=== PATIENT | female | born 1955 | race Caucasian/White ===

== ENCOUNTER 2016-12-23 20:47 | Emergency (ER) | payer OTHER | END 2016-12-23 22:01 | disposition home or self-care (01) | LOC: D.ER 20:47 | DX: G47.00 Insomnia, unspecified (principal); J44.9 Chronic obstructive pulmonary disease, unspecified; I10 Essential (primary) hypertension; E11.9 Type 2 diabetes mellitus without complications; F41.9 Anxiety disorder, unspecified; F17.200 Nicotine dependence, unspecified, uncomplicated ==

== ENCOUNTER 2017-11-13 08:11 | Outpatient (CLI) | payer OTHER ==
[~2017-11-13] VITALS: Ht 165.1 cm; Wt 105.2 kg
--- NOTE | ~2017-11-13 | OP ---
PATIENT NAME: VEENA WILKINS MEDICAL RECORD: [id number] :51 LOCATION:D.M2 D.2118 ADMISSION DATE: SURGEON: RODNEY COLBERT MD DATE OF OPERATION: 11/14/2017 PROCEDURES: 1. PTCA stent LAD. 2. Selective coronary angiography. INDICATION: Angina and coronary artery disease. PROCEDURE IN DETAIL: After informed consent was obtained and after a detailed description of risks, benefits as well as alternative therapies, the patient elected to proceed with angiogram and angioplasty. The right radial area was prepped and draped in normal sterile fashion. Right radial artery was cannulated via modified Seldinger technique with placement of 6-Vietnamese sheath. All catheters exchanged through this sheath. FINDINGS: The left anterior descending has 80% stenosis proximally. This was addressed with a 3.0 x 22 mm [place]. Result was 0% residual stenosis. OVERALL IMPRESSION: Successful percutaneous transluminal coronary angioplasty stent of the left anterior descending going from 80% initial stenosis to 0% residual. TRANSINT:[id number] Voice Confirmation ID: [id number] DOCUMENT ID: [id number] RODNEY COLBERT MD at 1614 CC: [id number] DICTATION DATE: 11/14/17 1243 LEARNING AND DEVELOPMENT MANAGER: 11/14/17 1251 REG [facility] [address] [place] [address]
--- NOTE | ~2017-11-13 | HEMODYNAMI ---
PATIENT:VEENA WILKINS MEDICAL RECORD: [id number] : 51 [facility] D[id number] ADMISSION DATE: 11/13/17 Generatedon:11/14/201712:52 Patient name: VEENA WILKINS Patient #: [id number] SSN: : 1955 Date of study: 11/14/2017 Page: Of Hemodynamic Procedure Report Patient Data Patient Demographics Procedure consent was obtained First Name: VEENA Gender: Female Last Name: CLAUDETTE : 1955 [facility] Initial: J Age: 62 year(s) Patient #: [id number] Race: Unknown Additional ID: [id number] Contact details [address]: [address] [place] [address] State: [place] City: [place] Zip code: [address] Past Medical History Allergies Allergen Reaction Date Comments Reported Other allergy 11/13/2017 IV DYE, COEINE, PCN Admission Admission Data Admission Date: 11/13/2017 Admission Time: 8:11 Room #: D.2118 Height (in.): 65 BSA: 1.98 (m2) Height (cm.): 165.1 BMI: 33.38 (kg/m2) Weight (lbs.): 200.62 Weight (kg.): 91 Lab Results Lab Result Date: 11/14/2017 Lab Result Time: 0:00 Biochemistry Name Units Result Min Max BUN mg/dl 7 --(*---)-- 7 18 Creatinine mg/dl 1.1 --(--*-)-- 0.6 1.3 CBC Name Units Result Min Max Hemoglobin g/dl 13.2 -*(----)-- 13.5 17.5 Coagulation Name Units Result Min Max INR units 1.09 --(---*)-- 0.85 1.17 PT sec 13.7 --(--*-)-- 11.6 15 Procedure Procedure Types Cath Procedure PCI Procedure Coronary Stent Coronary Stent Initial Procedure Description Procedure Date Procedure Date: 11/14/2017 Procedure Start Time: 12:35 Procedure End Time: 12:50 Procedure Staff Name Function Gerry Montes MD Performing Physician Andrew Neumann RT Monitor Abraham Basurto RN Nurse Memo Velasquez RT Scrub Procedure Data Cath Procedure Fluoroscopy Diagnostic fluoroscopy Total fluoroscopy Time: 1.3 time: 1.3 min min Diagnostic fluoroscopy Total fluoroscopy dose: dose: 119.02 mGy 119.02 mGy Contrast Material Contrast Material Type Amount (ml) Isovue 300 38 Entry Location Entry Primary Successful Side Size Upsize Upsize Entry Closure Jurado ccessful Closure Location (Fr) 1 (Fr) 2 (Fr) Remarks Device Remarks Radial Right 6 Fr Mechanical artery Short Compression Estimated blood loss: 10 ml Procedure Medications Medication Administration Route Dosage 0.9% NaCl I.V. 100 ml/hr Oxygen etCO2 Nasal cannula 2 l/min Heparin Flush Bag added to field 2 bags (1000units/500ml NS) Lidocaine 2% added to field 20 Radial Cocktail added to field 1 syringe (Verapomil 2mg/Nitro 400mcg/Heparin 1500units) Radial Cocktail I.A. 1 syringe (Verapomil 2mg/Nitro 400mcg/Heparin 1500units) Versed I.V. 2 mg Fentanyl I.V. 100 mcg Heparin Bolus I.V. 4000 units Plavix P.O. 75 mg Hemodynamics Rest BSA: 1.98 (m2) HGB: 13.2 (g/dl) O2 Consumption: Estimated: 193.38 (ml/min) O2 Co nsumption indexed: Estimated:97.67 (ml/min/m) Heart Rate: 81 (bpm) Snapshots Pre Cath Intra NCS Post Cath Vital Signs Time Heart Resp SPO2 etCO2 NIBP (mmHg) Rhythm Pain Sedation Rate (ipm) (%) (mmHg) Status Level (bpm) 12:21:53 81 11 93 21.7 172/71(113) NSR 0 (11) 10(A) , No pain 12:26:41 81 24 91 14.9 137/65(100) NSR 0 (11) 10(A) , No pain 12:31:22 82 18 90 12.7 138/67(120) NSR 0 (11) 10(A) , No pain 12:36:03 81 16 92 0 139/69(106) NSR 0 (11) 10(A) , No pain 12:40:35 81 19 92 1.4 106/57(72) NSR 0 (11) 10(A) , No pain 12:45:34 83 11 9.7 Measuring NSR 0 (11) 10(A) , No pain 12:45:59 81 11 93 27.7 128/73(105) NSR 0 (11) 10(A) , No pain Medications Time Medication Route Dose Verified Delivered Reason Not es Effectiveness by by 12:23:14 0.9% NaCl I.V. 100 Alexys Alexys Per physician ml/hr Jeet Marcano RN RN 12:23:24 Oxygen etCO2 2 l/min Alexys Alexys Per physician Nasal Jeet Marcano cannula RN RN 12:23:36 Heparin Flush added 2 bags Alexys Alexys used for Bag to Jeet Marcano procedure (1000units/500ml field RN RN NS) 12:23:46 Lidocaine 2% added 20ml Alexsy Alexys for local to vial Lorigan Jeet anesthetic RN RN 12:23:58 Radial Cocktail added 1 Alexys Alexys used for (Verapomil to syringe Maryigan Jeet procedure 2mg/Nitro RN RN 400mcg/Heparin 1500units) 12:33:42 Versed I.V. 2 mg Alexys Alexys for sedation Jeet Marcano RN RN 12:33:52 Fentanyl I.V. 100 mcg Alexys Alexys for sedation Jeet Marcano RN RN 12:36:54 Radial Cocktail I.A. 1 Alexys Gerry for (Verapomil syringe Jeet Montes MD vasodilation 2mg/Nitro RN 400mcg/Heparin 1500units) 12:39:17 Heparin Bolus I.V. 4000 Alexys Alexys for units Jeet Marcano anticoagulation RN RN 12:44:20 Plavix P.O. 75 mg Alexys Alexys for Lorigan Jeet antiplatelet RN RN therapy Procedure Log Time Note 11:50:58 Andrew WOODS(R) (CV) sent for patient. Start room use. 12:03:59 Time tracking: Regular hours (M-F 7:00 - 5:00) 12:04:11 Plan of Care:Hemodynamics will remain stable., Cardiac rhythm will remain stable., Comfort level will be maintained., Respiratory function will remain adequate., Patient/ family verbilizes understanding of procedure., Procedure tolerated without complication., Recovers from procedure without complications.. 12:05:17 Patient Weight : 200.62 lbs 12::22 Patient Height : 65 inches 12:: Lab Result : PT 13.7 sec 12:: Lab Result : INR 1.09 units 12:: Lab Result : Hemoglobin 13.2 g/dl 12:: Lab Result : BUN 7 mg/dl 12:: Lab Result : Creatinine 1.1 mg/dl 12::49 Patient received from PCU to CCL 3 Alert and oriented. Tansferred to table in Supine position. 12::50 Warm blankets applied, and tracy hugger turned on for patient comfort. 12::50 Correct patient and procedure confirmed by team. 12::51 Signed procedure consent form obtained from patient. 12::52 ECG and BP/O2 sat monitors applied to patient. 12:19:49 Vital chart was started 12:23:14 0.9% NaCl 100 ml/hr I.V. was administered by Alexys Marcano RN; Per physician; 12:23:24 Oxygen 2 l/min etCO2 Nasal cannula was administered by Alexys Marcano RN; Per physician; 12:23:36 Heparin Flush Bag (1000units/500ml NS) 2 bags added to field was administered by Alexys Marcano RN; used for procedure; 12:23:46 Lidocaine 2% 20ml vial added to field was administered by Alexys Marcano RN; for local anesthetic; 12:23:58 Radial Cocktail (Verapomil 2mg/Nitro 400mcg/Heparin 1500units) 1 syringe added to field was administered by Alexys Marcano RN; used for procedure; 12:24:08 Baseline sample Acquired. 12:24:11 Rhythm: sinus rhythm 12:24:13 Full Disclosure recording started 12:24:22 Pre-procedure instructions explained to patient. 12::25 Pre-op teaching completed and patient verbalized understanding. 12:24:27 Family in waiting room. 12:24:35 Patient NPO since Breakfast. 12:25:13 ALLERGIC TO: PCN, CODEINE, CONTRAST 12:25: Is the patient allergic to Iodine/contrast media? Yes. 12:: Was the patient premedicated? Yes 12::27 Is patient on blood thinner?Yes 12:27:04 Patient diabetic? Yes. 12:28:13 If diabetic: On Metformin? No 12::27 ----Pre-sedation anethsthesia assessment.---- 12:28:30 Previous problem with sedation/anesthesia? No ? 12:28:37 Snore? Yes 12:28:39 Sleep apnea? No 12:28:56 Deviated septum? No 12:28:57 Opens mouth fully? Yes 12:29:04 Sticks out tongue? Yes 12:29:10 Airway obstruction? Yes COPD 12:29:17 Dentures? Yes OUT 12:29:25 Patient pain scale 0/10 ?. 12:29:37 IV patent on arrival in left forearm with 0.9% NaCl at [facility]. 12:29:45 Lab results completed and on chart. 12:29:51 Right Radial & Right Groin area was prepped with chlora-prep and draped in sterile fashion 12:29:57 Alarms reviewed by R. N. 12:29:59 Sharps counted by scrub and verified by R.N. 12:30:28 INFLATOR Merit BasixCompak ([id number]) opened to sterile field. 12:30:54 Use device set Radial Dx or PCI 12:31:13 ACIST Syringe (42694) opened to sterile field. 12:31:27 Medline Cath Pack ([id number]) opened to sterile field. 12:31:36 Bag Decanter (2002) opened to sterile field. 12:31:38 DIAGNOSTIC WIRE .035 260cm J wire (720564) opened to sterile field. 12:31:39 ACIST Hand Control (60946) opened to sterile field. 12:31:53 ACIST Manifold (17519) opened to sterile field. 12:31:53 Tegaderm 4 x 4 (1626W) opened to sterile field. 12:31:56 MBrace Wrist Support ([id number]) opened to sterile field. 12:32:07 SHEATH 6Fr Prelude Radial ([id number]) opened to sterile field. 12:32:18 Physician arrived 12:32:18 --------ALL STOP TIME OUT------ 12:32:19 Final Timeout: patient, procedure, and site verified with staff and physician. All members of the team are in agreement. 12:32:21 Right Radial & Right Groin site verified by team. 12:32:25 Physical assessment completed. ASA score P 2 - A patient with mild systemic disease as per Gerry Montes MD. 12:32:30 Sedation plan: IV Moderate Sedation Medication:Versed, Fentanyl 12:32:46 CHOICE PT Extra Support 182cm wire ([id number]) opened to sterile field. 12:32:47 INFLATOR Merit BasixCompak (KF1919) opened to sterile field. 12:33:42 Versed 2 mg I.V. was administered by Alexys Marcano RN; for sedation; 12:33:52 Fentanyl 100 mcg I.V. was administered by Alexys Marcano RN; for sedation; 12:35:25 GUIDE 6FR XBLAD 3.5 catheter ([id number]) opened to sterile field. 12:35:37 Procedure started. 12:35:42 Local anesthetic to right radial artery with Lidocaine 2% by Gerry Montes MD.INITIAL ACCESS ONLY 12:36:00 A 6 Fr Short sheath was inserted into the Right Radial artery 12:36:35 6 Fr XBLAD 3.5 guide catheter was inserted over the wire 12:36:54 Radial Cocktail (Verapomil 2mg/Nitro 400mcg/Heparin 1500units) 1 syringe I.A. was administered by Gerry Montes MD; for vasodilation; 12:38:45 CHOICE wire advanced. 12:38:47 Wire advanced across lesion. 12:39:17 Heparin Bolus 4000 units I.V. was administered by Alexys Marcano RN; for anticoagulation; 12:39:57 Place stent Inflation Number: 1 A CHANTAL RX 3.0 x 22 stent ([id number]) was prepped and advanced across the Prox LAD. The stent was deployed at 17 DANIAL for 0:10 (min:sec). 12:40:11 TR BAND Standard ([id number]) opened to sterile field. 12:41:33 Stent catheter was removed intact over wire. 12:41:34 Wire removed. 12:41:35 Guide catheter removed. 12:41:51 Sheath removed intact; hemostasis achieved with Mechanical Compression to the Right Radial artery. 12:42:26 Procedure ended.(Physican Out) 12:42:37 Fluoroscopy time 01.30 minutes. 12:42:43 Fluoroscopy dose: 119.02 mGy 12:42:43 Flurop Dose total: 119.02 12:43:35 Contrast amount:Isovue 300 38ml. 12:44:20 Plavix 75 mg P.O. was administered by Alexys Marcano RN; for antiplatelet therapy; 12:46:32 TR band inflated with 12cc of air. 12:46:33 Insertion/operative site no bleeding no hematoma. 12:46:41 Post right radial artery:stable 12:48:28 Post-procedure physical assessment completed. ASA score P 2 - A patient with mild systemic disease as per Gerry Montes MD. 12:48:50 Post procedure rhythm: sinus rhythm 12:48:54 Estimated blood loss: 10 ml 12:48:55 Post procedure instruction explained to patient.Patient verbalizes understanding. 12:48:57 Patient needs reinforcement of post procedure teaching. 12:49:00 Procedure and supply charges have been captured, reviewed, submitted and are correct. 12:49:01 Vital chart was stopped 12:49:02 See physician's report for complete and final results. 12:49:04 Report given to PCU. 12:49:07 Report given to PCU. 12:50:02 Patient transfered to PCU with Bed. 12:50:04 Procedure ended. 12:50:04 Full Disclosure recording stopped 12:50:08 End room use (Document Last) Intervention Summary Intervention Notes Time ActionType Lesion and Equipment Used Action# Pressure Duration Attributes 12:39:57 Place stent Prox LAD CHANTAL RX 3.0 x 1 17 00:10 22 stent ([id number]) Device Usage Item Name Manufacture Quantity Catalog Number Hospital Part Current Minimal Lot# / Charge Number Stock Stock Serial# Code INFLATOR Merit Merit 2 [id number] [id number] [id number] 15 [employer] ([id number]) ACIST Syringe Acist 1 34273 991129 981651 314430 20 (96410) Medical Systems Inc Medline Cath Cardinal 1 [id number] 842762 43271 931926 5 Pack Health ([id number]) Bag Decanter Microtek 1 167138 50062 472930 5 () Medical Inc. DIAGNOSTIC WIRE [facility] [place] 1 236942 548858 689892 138050 30 .035 260cm J wire (724141) ACIST Hand Acist 1 84959 466708 929617 010306 5 Control (42767) [employer] Inc ACIST Manifold Acist 1 89650 189725 765579 702219 5 (63930) Medical Systems Inc Tegaderm 4 x 4 3M 1 1626W 631297 091541 007011 5 (1626W) MBrace Wrist Advanced 1 140-0250-00 313574 85243 128399 5 Support Vascular ([id number]) Dynamics SHEATH 6Fr Merit 1 [id number] 857515 587472 456977 5 Prelude Radial Medical ([id number]) CHOICE PT Extra [place] 1 [id number] 323606 290102 440696 5 Support 182cm Scientific wire (2614500T9) GUIDE 6FR XBLAD Cardinal 1 [id number] 116029 416206 763293 10 3.5 catheter Health (28137652) CHANTAL RX 3.0 x Medtronic 1 [id number] 965236 4692776 986162 5 [id number] 22 stent ([id number]) TR BAND Terumo 1 [id number] 492542 256029 596895 40 Standard ([id number]) Signature Audit [place] Stage Time Signature Unsigned Intra-Procedure 11/14/2017 Andrew Neumann 12:52:00 PM RT(R) (CV) Signatures Monitor : Andrew Neumann RT Signature : Date : Time : [facility] [address] [facility] [place] [address]
--- NOTE | ~2017-11-13 | OP ---
PATIENT NAME: VEENA WILKINS MEDICAL RECORD: [id number] :51 LOCATION:D.M2 D.2118 ADMISSION DATE: SURGEON: RODNEY COLBERT MD DATE OF OPERATION: 11/13/2017 PROCEDURES: 1. PTCA stent left circumflex. 2. Left heart catheterization. 3. Selective coronary angiography. 4. Left ventriculogram. 5. Four-vessel carotid vertebral angiography. INDICATION: Angina, coronary artery disease, carotid vascular disease, unsteady gait. PROCEDURE IN DETAIL: After informed consent was obtained and after detailed explanation of risks, benefits as well as alternative therapies, the patient elected to proceed with angiogram and angioplasty. The right femoral area was prepped and draped in normal sterile fashion. The right femoral artery was cannulated via modified Seldinger technique with placement of 6-Azeri sheath. All catheters exchanged through this sheath. FINDINGS: There was subselection of each subclavian as well as the left carotid. Right side; the common internal and external carotids have mild plaquing, no greater than 10% to 20%, no flow-limiting stenosis. Vertebral artery is devoid of disease. Left system; the common internal and external carotids have moderate plaquing, none greater than 30% to 40%, no flow-limiting stenosis. Vertebral artery is devoid of disease. The left ventriculogram was performed in standard 30-degree RODAS view, reveals good cardiac wall motion throughout all segments. Overall ejection fraction estimated at 55% to 60%. SELECTIVE CORONARY ANGIOGRAPHY: 1. Left main is with no significant angiographic disease. 2. Left anterior descending has 80% stenosis in the mid vessel as well as 80% stenosis of the diagonal. 3. Left circumflex has 95% stenosis in the proximal vessel. 4. The right coronary has previously placed stents. There is mild in-stent restenosis, but no flow-limiting stenosis. PTCA STENT OF THE LEFT CIRCUMFLEX: The stent used is a 3.0 x 18 mm [place]. Result was 0% residual stenosis. OVERALL IMPRESSION: Successful PTCA stent of the left circumflex going from 95% initial stenosis to 0% residual. PLAN: PTCA stent of the LAD and LAD diagonal in the near future. TRANSINT:[id number] Voice Confirmation ID: [id number] DOCUMENT ID: [id number] OPERATIVE REPORT [id number] VEENA WILKINS RODNEY COLBERT MD at 1207 CC: [id number] DICTATION DATE: 11/13/17 1443 MICA PLATE LAYER HAND: 11/13/17 1534 [id number] [place] [address]
--- NOTE | ~2017-11-13 | HEMODYNAMI ---
PATIENT:VEENA WILKINS MEDICAL RECORD: [id number] : 51 [facility] AD[facility] DATE: 11/13/17 Generatedon:11/13/201714:50 Patient name: VEENA WILKINS Patient #: [id number] SSN: : 1955 Date of study: 11/13/2017 Page: Of Hemodynamic Procedure Report Patient Data Patient Demographics Procedure consent was obtained First Name: VEENA Gender: Female Last Name: CLAUDETTE : 1955 [facility] Initial: J Age: 62 year(s) Patient #: [id number] Race: Unknown Additional ID: [id number] Contact details [address]: [address] [place] [address] State: [place] City: [place] Zip code: [address] Past Medical History Allergies Allergen Reaction Date Comments Reported Other allergy 11/13/2017 IV DYE, COEINE, PCN Admission Admission Data Admission Date: 11/13/2017 Admission Time: 8:11 Procedure Procedure Types Cath Procedure Diagnostic Procedure [facility] w/Coronaries PCI Procedure Coronary Stent Coronary Stent Initial Peripheral Cath Diagnostic Procedure Cath Peripheral Four Vessel Arteriogram Procedure Description Procedure Date Procedure Date: 11/13/2017 Procedure Start Time: 14:28 Procedure End Time: 14:49 Procedure Staff Name Function Gerry Montes MD Performing Physician Miguel Ángel Prasad RT Monitor Alexys Marcano RN Nurse Hallie Ford RT Scrub Procedure Data Cath Procedure Fluoroscopy Diagnostic fluoroscopy Total fluoroscopy Time: 3 time: 3 min min Diagnostic fluoroscopy Total fluoroscopy dose: dose: 664.33 mGy 664.33 mGy Contrast Material Contrast Material Type Amount (ml) Isovue 300 110 Entry Location Entry Primary Successful Side Size Upsize Upsize Entry Closure Succes sful Closure Location (Fr) 1 (Fr) 2 (Fr) Remarks Device Remarks Femoral Right 5 Fr 6 Fr Exoseal artery Short Estimated blood loss: 10 ml Diagnostic catheters Device Type Used For End Catheter Placement MULTIPACK Pigtail 5 Fr Procedure catheter MULTIPACK JL 4.0 5Fr Procedure catheter MULTIPACK 3DRC 5Fr Procedure catheter Procedure Complications No complications Procedure Medications Medication Administration Route Dosage 0.9% NaCl I.V. 100 ml/hr Oxygen etCO2 Nasal cannula 2 l/min Heparin Flush Bag added to field 2 bags (1000units/500ml NS) Lidocaine 2% added to field 20 Versed I.V. 1 mg Fentanyl I.V. 50 mcg Heparin Bolus I.V. 4000 units Plavix P.O. 75 mg Hemodynamics Rest Heart Rate: 86 (bpm) Snapshots Pre Cath Intra NCS Post Cath Vital Signs Time Heart Resp SPO2 etCO2 NIBP (mmHg) Rhythm Pain Sedation Rate (ipm) (%) (mmHg) Status Level (bpm) 14:17:34 79 19 97 36.7 175/80(119) NSR 0 (11) 10(A) , No pain 14:22:33 88 23 98 29.9 163/70(120) NSR 0 (11) 10(A) , No pain 14:27:24 85 20 93 42.6 135/71(98) NSR 0 (11) 10(A) , No pain 14:33:04 88 14 91 11.2 153/74(118) NSR 0 (11) 10(A) , No pain 14:38:01 71 14 91 24.7 151/75(117) NSR 0 (11) 9(A) , No pain 14:42:54 89 15 89 41.1 170/93(149) NSR 0 (11) 9(A) , No pain 14:47:52 80 13 94 41.9 188/86(143) NSR 0 (11) 10(A) , No pain Medications Time Medication Route Dose Verified Delivered Reason Notes Effectiveness by by 14:20:10 0.9% NaCl I.V. 100 Alexys Alexys Per physician ml/hr Jeet Marcano RN RN 14:20:19 Oxygen etCO2 2 Alexys Alexys Per physician Nasal l/min Jeet Marcano cannula RN RN 14:22:51 Heparin Flush added 2 Alexys Alexys used for Bag to bags Jeet Marcano procedure (1000units/500ml field RN RN NS) 14:23:02 Lidocaine 2% added 20ml Alexys Alexys for local to vial Lorigan Lorigan anesthetic field KAREN RN 14:27:51 Versed I.V. 1 mg Alexys Alexys for sedation Jeet Marcano RN RN 14:27:59 Fentanyl I.V. 50 Alexys Alexys for sedation mcg Jeet Marcano RN RN 14:35:49 Heparin Bolus I.V. 4000 Alexys Alexys for units Jeet Marcano anticoagulation RN RN 14:40:06 Plavix P.O. 75 mg Alexys Alexys for Jeet Marcano antiplatelet RN RN therapy Procedure Log Time Note 13:56:17 Miguel Ángel Prasad RT(R) sent for patient. Start room use. 13:56:18 Time tracking: Regular hours (M-F 7:00 - 5:00) 13:56:22 Plan of Care:Hemodynamics will remain stable., Cardiac rhythm will remain stable., Comfort level will be maintained., Respiratory function will remain adequate., Patient/ family verbilizes understanding of procedure., Procedure tolerated without complication., Recovers from procedure without complications.. 14:10:10 Patient received from ED to CCL 1 Alert and oriented. Tansferred to table in Supine position. 14:10:11 Warm blankets applied, and tracy hugger turned on for patient comfort. 14:10:11 Correct patient and procedure confirmed by team. 14:10:13 Signed procedure consent form obtained from patient. 14:10:13 ECG and BP/O2 sat monitors applied to patient. 14:10:14 Full Disclosure recording started 14:16:23 Vital chart was started 14:20:10 0.9% NaCl 100 ml/hr I.V. was administered by Alexys Marcano RN; Per physician; 14:20:19 Oxygen 2 l/min etCO2 Nasal cannula was administered by Alexys Marcano RN; Per physician; 14:22:51 Heparin Flush Bag (1000units/500ml NS) 2 bags added to field was administered by Alexys Marcano RN; used for procedure; 14:23:02 Lidocaine 2% 20ml vial added to field was administered by Alexys Marcano RN; for local anesthetic; 14:23:09 Baseline sample Acquired. 14:23:14 Rhythm: sinus rhythm 14:24:06 H&P Date Dictated: 11/13/2017 New H&P dictated by physician.. 14:24:07 Pre-procedure instructions explained to patient. 14:24:08 Pre-op teaching completed and patient verbalized understanding. 14:24:10 Family in waiting room. 14:24:18 Patient NPO since Breakfast. 14:24:42 Patient allergic to Other allergyIV DYE, COEINE, PCN 14:24:51 Is the patient allergic to Iodine/contrast media? Yes. 14:24:52 Was the patient premedicated? Yes 14:24:56 Is patient on blood thinner?Yes 14:24:58 ACC The patient was administered the following blood thiners within the last 24 hours: ACCPlavix 14:25:04 Patient diabetic? Yes. 14:25:23 Previous problem with sedation/anesthesia? No ? 14:25:24 Snore? Yes 14:25:26 Sleep apnea? No 14:25:27 Deviated septum? No 14:25:29 Opens mouth fully? Yes 14:25:30 Sticks out tongue? Yes 14:25:33 Airway obstruction? Yes COPD 14:25:36 Dentures? No ? 14:25:39 Pre procedure: right dorsailis pedis pulse 2+ Normal; easily identifiable; not easily obliterated 14:25:41 Patient pain scale 0/10 ?. 14:25:45 IV patent on arrival in left antecubital with 0.9% NaCl at [facility]. 14:25:47 Lab results completed and on chart. 14:26:04 Right groin area was prepped with chlora-prep and draped in sterile fashion 14:26:05 Alarms reviewed by R. N. 14:26:05 Sharps counted by scrub and verified by R.N. 14:26:07 Use device set Femoral Dx 14:26:08 ACIST Syringe (90544) opened to sterile field. 14:26:08 Bag Decanter () opened to sterile field. 14:26:09 Medline Cath Pack ([id number]) opened to sterile field. 14:26:10 ACIST Hand Control (67700) opened to sterile field. 14:26:10 ACIST Manifold (23947) opened to sterile field. 14:26:13 Tegaderm 4 x 4 (1626W) opened to sterile field. 14:26:17 SHEATH Prelude 5Fr 0.035 (SNS-2H-90-035) opened to sterile field. 14:26:19 DIAGNOSTIC WIRE .035 260cm J wire (750530) opened to sterile field. 14:26:20 DIAGNOSTIC Multipack 5Fr catheter set ([id number]) opened to sterile field. 14:: Physician arrived 14:: --------ALL STOP TIME OUT------ 14:: Final Timeout: patient, procedure, and site verified with staff and physician. All members of the team are in agreement. 14:: Right groin site verified by team. 14:: Physical assessment completed. ASA score P 2 - A patient with mild systemic disease as per Gerry Montes MD. 14::31 Sedation plan: IV Moderate Sedation Medication:Versed, Fentanyl 14::51 Versed 1 mg I.V. was administered by Alexys Marcano RN; for sedation; 14::59 Fentanyl 50 mcg I.V. was administered by Alexys Marcano RN; for sedation; 14::23 Procedure started. 14::28 Local anesthetic to right femoral artery with Lidocaine 2% by Gerry Montes MD.INITIAL ACCESS ONLY 14:28:36 A 5 Fr sheath was inserted into the Right Femoral artery 14:28:40 Zero performed for pressure channel P1 14:28:43 Zero performed for pressure channel P1 14:28:46 Zero performed for pressure channel P1 14:29:08 A MULTIPACK Pigtail 5 Fr catheter was advanced over the wire and used for Procedure. 14:29:32 LV gram done using RODAS 14:29:34 Injector settings: Ml/sec: 10, Volume: 20, 14:29:44 EF : 60 % 14:29:46 Catheter exchanged over wire. 14:29:51 A MULTIPACK JL 4.0 5Fr catheter was advanced over the wire and used for Procedure. 14:30:15 GUIDE 6FR XBLAD 4.0 catheter ([id number]) opened to sterile field. 14:30:28 LCA angiography performed. 14:30:45 Catheter exchanged over wire. 14:30:48 CHOICE PT Extra Support 182cm wire ([id number]) opened to sterile field. 14:30:48 SHEATH Prelude 6Fr 0.035 (LFI-8I-49-035) opened to sterile field. 14:30:49 INFLATOR Merit BasixCompak (LL6605) opened to sterile field. 14:32:27 A MULTIPACK 3DRC 5Fr catheter was advanced over the wire and used for Procedure. 14:32:30 RCA angiography performed. 14:32:37 EXOSEAL 6Fr (EX600) opened to sterile field. 14:34:26 Right carotid angiography performed. 14:34:31 Right subclavian angiography performed 14:34:34 Left carotid angiography performed. 14:35:09 Catheter removed. 14:35:11 Sheath upsized to a 6 Fr Short. 14:35:49 Heparin Bolus 4000 units I.V. was administered by Alexys Marcano RN; for anticoagulation; 14:36:25 6 Fr XBLAD 4 guide catheter was inserted over the wire 14:36:30 CHOICE PT ES wire advanced. 14:36:52 Wire advanced across lesion. 14:37:33 Place stent Inflation Number: 1 A CHANTAL RX 3.0 x 18 stent ([id number]) was prepped and advanced across the Prox CX. The stent was deployed at 13 DANIAL for 0:10 (min:sec). 14:40:06 Plavix 75 mg P.O. was administered by Alexys Marcano RN; for antiplatelet therapy; 14:40:37 Stent catheter was removed intact over wire. 14:40:38 Wire removed. 14:40:38 Guide catheter removed. 14:40:46 Sheath removed intact; hemostasis achieved with Exoseal to the Right Femoral artery. 14:40:48 Procedure ended.(Physican Out) 14:46:59 Fluoroscopy time 03.00 minutes. 14:47:16 Fluoroscopy dose: 664.33 mGy 14:47:16 Flurop Dose total: 664.33 14:47:21 Contrast amount:Isovue 300 110ml. 14:47:22 Sharps counted by scrub and verified by R.N. 14:47:30 Insertion/operative site no bleeding no hematoma. 14:47:32 Post-op/insertion site Right Femoral artery dressed using a 4 x 4 and Tegaderm. 14:47:35 Post right femoral artery:stable, soft, clean and dry 14:47:37 Post Procedure Pulses reassessed and unchanged 14:47:39 Post-procedure physical assessment completed. ASA score P 2 - A patient with mild systemic disease as per Gerry Montes MD. 14:47:41 Post procedure rhythm: unchanged. 14:47:43 Estimated blood loss: 10 ml 14:47:44 Post procedure instruction explained to patient.Patient verbalizes understanding. 14:47:45 Patient needs reinforcement of post procedure teaching. 14:48:06 Procedure type changed to Cath procedure, Diagnostic procedure, LHC, LHC w/Coronaries, PCI procedure, Coronary Stent, Coronary Stent Initial, Peripheral Cath Diagnostic Procedure, Cath Peripheral, Four Vessel Arteriogram 14:49:40 Procedure and supply charges have been captured, reviewed, submitted and are correct. 14:49:42 Procedure Complication : No complications 14:49:44 Vital chart was stopped 14:49:45 See physician's report for complete and final results. 14:49:50 Report given to PCU. 14:49:52 Patient transfered to PCU with Stretcher. 14:49:54 Procedure ended. 14:49:54 Full Disclosure recording stopped 14:49:57 End room use (Document Last) 14:49:57 End room use (Document Last) Intervention Summary Intervention Notes Time ActionType Lesion and Equipment Used Action# Pressure Duration Attributes 14:37:33 Place stent Prox CX CHANTAL RX 3.0 x 1 13 00:10 18 stent ([id number]) Device Usage Item Name Manufacture Quantity Catalog Number Hospital Part Current Minimal Lot# / Charge Number Stock Stock Serial# Code ACIST Syringe Acist 1 35546 256054 701515 014378 20 (20074) [employer] Bag Decanter Microtek 1 2001S 795619 96032 023098 5 (2001S) Medical Inc. Medline Cath Cardinal 1 [id number] 295021 43901 309125 5 Pack Health ([id number]) ACIST Hand Acist 1 51305 223427 790273 309374 5 Control (45350) [employer] Inc ACIST Manifold Acist 1 73078 860898 688710 858201 5 (69115) [employer] Inc Tegaderm 4 x 4 3M 1 1626W 017488 772301 543008 5 (1626W) SHEATH Prelude Merit 1 YWY-1E-08-035 597577 520828 627719 5 5Fr 0.035 Medical (YSC-7X-97-035) DIAGNOSTIC WIRE [facility] 1 176359 378147 053901 821513 30 .035 260cm J wire (909158) DIAGNOSTIC Cardinal 1 [id number] 206611 53615 771689 30 Multipack 5Fr Health catheter set ([id number]) MULTIPACK Cardinal 1 718961 5 Pigtail 5 Fr Health catheter MULTIPACK JL Cardinal 1 769501 5 4.0 5Fr Health catheter CHOICE PT Extra Snyder 1 [id number] 007497 806142 889585 5 Support 182cm Scientific wire ([id number]) SHEATH Prelude Merit 1 BNT-5J-70-35 032682 2649614 142839 5 6Fr 0.035 Medical (WDQ-3C-81-035) INFLATOR Merit Merit 1 UW5367 766548 142368 956298 15 Gink[employer] (OD4118) MULTIPACK 3DRC Cardinal 1 346730 5 5Fr catheter Health EXOSEAL 6Fr Cardinal 1 EX600 381622 498624 330756 10 (EX600) Health CHANTAL RX 3.0 x Medtronic 1 [id number] 219632 1432517 103063 5 [id number] 18 stent ([id number]) GUIDE 6FR XBLAD Cardinal 1 [id number] 174541 747322 286527 3 4.0 catheter Health ([id number]) Signature Audit [place] Stage Time Signature Unsigned Intra-Procedure 11/13/2017 Miguel Ángel Prasad 2:50:28 PM RT(R) Signatures Monitor : Miguel Ángel Prasad RT Signature : Date : Time : [place] [id number] [facility] [place] [address]
[2017-11-13] MEDS ORDERED: ISOSORBIDE MON120 M1 PO (08:16)
[2017-11-13] MEDS ORDERED: BAYER CHEWABLE81 MG PO (08:16)
[2017-11-13] MEDS ORDERED: [UNRECOGNIZED DRUG - REMARK] (08:17)
[2017-11-13 08:36] LABS: BASOPHILS 0.3 % (0-2); EOSINOPHILS 2.5 % (0-7); HEMATOCRIT 38.8 % (36.0-48.0); HEMOGLOBIN 13.2 g/dL (12-16); IMMATURE GRANULOCYTES 0.3 % (0-5); LYMPHOCYTES 34.2 % (15-50); MCH 29.8 pg (26.0-34.0); MCV 87.6 fL (80.0-100.0); MEAN PLATELET VOLUME 10.2 fL (7.4-10.4); MONOCYTES 8.7 % (2-11); PLATELET COUNT 194 10x3/uL (130-400); RBC 4.43 10x6/uL (4.00-5.40); WBC 6.1 10x3/uL (4.8-10.8)
[2017-11-13 08:50] LABS: ALBUMIN 2.6 g/dL (3.4-5.0); ALKALINE PHOSPHATASE 61 U/L (46-116); ALT (SGPT) 26 U/L (10-68); APTT 25.8 SECONDS (22.8-39.4); BILIRUBIN - TOTAL 0.31 mg/dL (0.2-1.3); CALC OSMOLALITY 277 mosm/kg (275-300); CARBON DIOXIDE 31.8 mmol/L (21.0-32.0); CHLORIDE - SERUM 103 mmol/L (98-107); CREATININE - SERUM 1.1 mg/dL (0.6-1.3); INR 1.09 (0.85-1.17); POTASSIUM - SERUM 4.1 mmol/L (3.5-5.1); PROTEIN - SERUM 6.5 g/dL (6.4-8.2); PROTIME 13.7 SECONDS (11.6-15.0); SODIUM 140 mmol/L (136-145); UREA NITROGEN 7 mg/dL (7-18); eGFR NON AFRICAN AMERICAN 53 mL/min (90-120)
[2017-11-13 08:51] LABS: GLUCOSE 117 mg/dL (74-106)
[2017-11-13 08:52] LABS: D-DIMER-QUANTITATIVE 0.7 ug/mLFEU (0.20-0.54)
[2017-11-13 09:00] LABS: CKMB 0.4 U/L (0.0-3.6); CREATINE KINASE 24 UL (21-215); PRO BNP 217 pg/mL (0-125)
[2017-11-13 09:03] LABS: TROPONIN-I < 0.017 ng/mL (0.000-0.060)
[2017-11-13 16:08] VITALS: BP 178/81; BMI 33.3
[2017-11-13 20:10] VITALS: BP 137/62
[2017-11-14] VITALS (7 sets, daily range): BP systolic 131–160; BP diastolic 62–76; Ht 165.1 cm; Wt 105.2 kg
[2017-11-14] MEDS ORDERED: PLAVIX75 MG PO (09:11)
[2017-11-14] MEDS ORDERED: ACCOLATE20 MG PO (09:25)
[2017-11-14] MEDS ORDERED: METOPROLOL TAR100 M1 PO (09:25)
[2017-11-14] MEDS ORDERED: CELEXA40 MG PO (09:26)
[2017-11-14] MEDS ORDERED: LIPITOR80 MG PO (09:27)
[2017-11-14] MEDS ORDERED: NORVASC10 MG PO (09:29)
[2017-11-14] MEDS ORDERED: NEURONTIN 400400 MG PO (09:29)
[2017-11-14] MEDS ORDERED: CLEOCIN HCL150 MG PO (09:30)
[2017-11-14] MEDS ORDERED: HYDROCHLOROTH12.5 M1 PO (09:30)
[2017-11-14] MEDS ORDERED: EFFEXOR75 MG PO (09:30)
[2017-11-15 05:14] VITALS: BP 175/64
[2017-11-15 08:01] VITALS: BP 173/75
[2017-11-15 11:32] VITALS: BP 137/68
== END 2017-11-15 13:02 | disposition home or self-care (01) ==
LOC: D.CATH 08:11 → D.M2 08:11 → D.ER 08:11 → EDSTATUS 13:00 → D.ER 14:11 → D.M2 15:38 → D.CATH 11-15 13:02
PROVIDERS: Family Medicine
DX: I25.119 Atherosclerotic heart disease of native coronary artery with unspecified angina pectoris (principal); T82.855A Stenosis of coronary artery stent, initial encounter; R26.81 Unsteadiness on feet; Z01.812 Encounter for preprocedural laboratory examination

== ENCOUNTER → 2017-11-19 07:47 | Outpatient (CLI) | payer OTHER ==
[~2017-11-19] VITALS: Ht 165.1 cm; Wt 100.5 kg
--- NOTE | ~2017-11-19 | OP ---
PATIENT NAME: VEENA WILKINS MEDICAL RECORD: [id number] :51 LOCATION:[facility] ADMISSION DATE: SURGEON: RODNEY COLBERT MD DATE OF OPERATION: 11/19/2017 PROCEDURES: 1. PTCA stent RCA. 2. Selective coronary angiography. 3. Intravascular ultrasound. INDICATION: Angina and coronary artery disease. PROCEDURE PERFORMED: After informed consent was obtained and after a detailed description of risks, benefits as well as alternative therapies, the patient elected to proceed with angiogram and angioplasty. The left femoral area was prepped and draped in normal sterile fashion. Left femoral artery was cannulated via modified Seldinger technique with placement of 6-[place] sheath. All catheters exchanged through this sheath. FINDINGS: Intravascular ultrasound was performed. There was greater than 80% stenosis throughout the mid RCA. This was addressed with a 4.0 x 34 Fady stent. Result was 0% residual stenosis. OVERALL IMPRESSION: Successful percutaneous transluminal coronary angioplasty stent of the RCA going from 80% initial stenosis to 0% residual. 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
--- NOTE | ~2017-11-19 | HEMODYNAMI ---
PATIENT:VEENA WILKINS MEDICAL RECORD: [id number] : 51 LOCATION:[facility] ADMISSION DATE: 11/19/17 Generatedon:11/19/201710:59 Patient name: VEENA WILKINS Patient #: [id number] SSN: : 1955 Date of study: 11/19/2017 Page: Of Hemodynamic Procedure Report Patient Data Patient Demographics Procedure consent was obtained First Name: VEENA Gender: Female Last Name: CLAUDETTE : 1955 Middle Initial: NASIM Age: 62 year(s) Patient #: [id number] Race: Unknown Additional ID: [id number] Contact details [address]: [address] [place] [address] State: [place] City: [place] Zip code: [address] Past Medical History Allergies Allergen Reaction Date Comments Reported Other allergy 11/13/2017 IV DYE, COEINE, PCN Admission Admission Data Admission Date: 11/19/2017 Admission Time: 7:47 Lab Results Lab Result Date: 11/14/2017 Lab Result Time: 0:00 Biochemistry Name Units Result Min Max BUN mg/dl 7 --(*---)-- 7 18 Creatinine mg/dl 1.1 --(--*-)-- 0.6 1.3 CBC Name Units Result Min Max Hemoglobin g/dl 13.2 -*(----)-- 13.5 17.5 Coagulation Name Units Result Min Max INR units 1.09 --(---*)-- 0.85 1.17 PT sec 13.7 --(--*-)-- 11.6 15 Procedure Procedure Types Cath Procedure Diagnostic Procedure FFR/IVUS Intra-Coronary IVUS Initial PCI Procedure Coronary Stent Coronary Stent Initial Procedure Description Procedure Date Procedure Date: 11/19/2017 Procedure Start Time: 10:44 Procedure End Time: 10:59 Procedure Staff Name Function Gerry Montes MD Performing Physician Memo Velasquez RT Monitor Abraham Basurto RN Nurse Andrew Neumann RT Scrub Procedure Data Cath Procedure Fluoroscopy Diagnostic fluoroscopy Total fluoroscopy Time: 2.4 time: 2.4 min min Diagnostic fluoroscopy Total fluoroscopy dose: 166 dose: 166 mGy mGy Contrast Material Contrast Material Type Amount (ml) Isovue 300 30 Entry Location Entry Primary Successful Side Size Upsize Upsize Entry Closure Succes sful Closure Location (Fr) 1 (Fr) 2 (Fr) Remarks Device Remarks Femoral Left 6 Fr Exoseal artery Short Estimated blood loss: 10 ml Procedure Complications No complications Procedure Medications Medication Administration Route Dosage Oxygen etCO2 Nasal cannula 2 l/min Heparin Flush Bag added to field 2 bags (1000units/500ml NS) 0.9% NaCl I.V. 100 ml/hr Fentanyl I.V. 50 mcg Versed I.V. 1 mg Fentanyl I.V. 50 mcg Versed I.V. 1 mg Fentanyl I.V. 50 mcg Heparin Bolus I.V. 4000 units Fentanyl I.V. 50 mcg Hemodynamics Rest HGB: 13.2 (g/dl) Heart Rate: 62 (bpm) Snapshots Pre Cath Intra NCS Post Cath Vital Signs Time Heart Resp SPO2 etCO2 NIBP (mmHg) Rhythm Pain Sedation Rate (ipm) (%) (mmHg) Status Level (bpm) 10:29:27 66 18 95 29.2 131/116(125) NSR 0 (11) 10(A) , No pain 10:34:43 67 17 95 18.7 154/81(113) NSR 0 (11) 10(A) , No pain 10:39:07 68 16 96 20.2 145/78(106) NSR 0 (11) 10(A) , No pain 10:43:29 68 17 96 17.2 146/82(117) NSR 0 (11) 9(A) , No pain 10:47:47 69 16 88 36.7 117/71(96) NSR 0 (11) 9(A) , No pain 10:51:57 71 17 95 37.5 137/90(115) NSR 0 (11) 9(A) , No pain 10:55:57 72 7 96 27.7 166/96(137) NSR 0 (11) 9(A) , No pain Medications Time Medication Route Dose Verified Delivered Reason Notes Effectiveness by by 10:29:23 Oxygen etCO2 2 Gerry Abraham Per physician Nasal l/min Jyoti Basurto RN cannula 10:29:30 Heparin Flush added 2 Gerry Rosario used for Bag to bags Jyoti Basurto RN procedure (1000units/500ml field NS) 10:29:40 0.9% NaCl I.V. 100 Gerry Abraham Per physician ml/hr Jyoti Basurto RN 10:38:27 Fentanyl I.V. 50 Gerry Rosario for sedation mcg Jyoti Basurto RN 10:38:34 Versed I.V. 1 mg Gerry Josephy for sedation Jyoti Basurto RN 10:42:40 Fentanyl I.V. 50 Gerry Josephy for sedation mcg Jyoti Basurto RN 10:42:43 Versed I.V. 1 mg Gerry Abraham for sedation Jyoti Basurto RN 10:44:55 Fentanyl I.V. 50 Gerry Josephy for sedation mcg Jyoti Basurto RN 10:45:08 Heparin Bolus I.V. 4000 Gerry Rosario for units Jyoti Basurto RN anticoagulation 10:47:57 Fentanyl I.V. 50 Gerry Rosario for sedation mcg Jyoti Basurto RN Procedure Log Time Note 10:10:08 Andrew Neumann RT(R) (CV) sent for patient. Start room use. 10:23:09 Time tracking: Regular hours (M-F 7:00 - 5:00) 10:23:13 Plan of Care:Hemodynamics will remain stable., Cardiac rhythm will remain stable., Comfort level will be maintained., Respiratory function will remain adequate., Patient/ family verbilizes understanding of procedure., Procedure tolerated without complication., Recovers from procedure without complications.. 10:23:24 Patient received from Pre/Post Procedure Room to CCL 3 Alert and oriented. Tansferred to table in Supine position. 10:23:25 Warm blankets applied, and tracy hugger turned on for patient comfort. 10:23:26 Correct patient and procedure confirmed by team. 10:23:26 Signed procedure consent form obtained from patient. 10:23:27 ECG and BP/O2 sat monitors applied to patient. 10:28:02 Vital chart was started 10:29:23 Oxygen 2 l/min etCO2 Nasal cannula was administered by Abraham Basurto RN; Per physician; 10:29:30 Heparin Flush Bag (1000units/500ml NS) 2 bags added to field was administered by Abraham Basurto RN; used for procedure; 10:29:40 0.9% NaCl 100 ml/hr I.V. was administered by Abraham Basurto RN; Per physician; 10:31:58 Baseline sample Acquired. 10:32:03 Rhythm: sinus rhythm 10:32:06 Full Disclosure recording started 10:32:10 H&P Date Dictated: 11/19/2017 New H&P dictated by physician.. 10:32:10 Pre-procedure instructions explained to patient. 10:32:11 Pre-op teaching completed and patient verbalized understanding. 10:32:12 Family in patients room. 10:32:13 Patient NPO since Midnight. 10:32:14 Is the patient allergic to Iodine/contrast media? No. 10:32:16 Is patient on blood thinner?Yes 10:32:18 ACC The patient was administered the following blood thiners within the last 24 hours: ACCPlavix 10:32:20 Patient diabetic? Yes. 10:32:21 If diabetic: On Metformin? No 10:32:24 Previous problem with sedation/anesthesia? No ? 10:32:25 Snore? Yes 10:32:26 Sleep apnea? No 10:32:26 Deviated septum? No 10:32:27 Opens mouth fully? Yes 10:32:28 Sticks out tongue? Yes 10:32:30 Airway obstruction? Yes COPD 10:32:34 Dentures? Yes IN 10:32:38 Pre procedure: left dorsailis pedis pulse 1+ Palpable, but thready & weak; easily obliterated 10:33:14 Right groin is brazing machine tender to the touch and sore from the last procedure on 11.13.17 10:34:02 Patient pain scale 0/10 ?. 10:34:12 IV patent on arrival in left forearm with 0.9% NaCl at [facility]. 10:34:14 Lab results completed and on chart. 10:34:17 Left groin area was prepped with chlora-prep and draped in sterile fashion 10:34:18 Alarms reviewed by R. N. 10:34:19 Sharps counted by scrub and verified by R.N. 10:34:29 ACIST Manifold (77611) opened to sterile field. 10:34:30 Tegaderm 4 x 4 (1626W) opened to sterile field. 10:34:31 ACIST Hand Control (90869) opened to sterile field. 10:34:32 ACIST Syringe (65880) opened to sterile field. 10:34:32 Medline Cath Pack ([id number]) opened to sterile field. 10:34:32 Bag Decanter (2002S) opened to sterile field. 10:34:33 DIAGNOSTIC WIRE .035 260cm J wire (598718) opened to sterile field. 10:34:43 Use device set TAUTH PCI 10:34:45 INFLATOR Merit BasixCompak (MA7525) opened to sterile field. 10:34:52 CHOICE PT Extra Support 182cm wire ([id number]) opened to sterile field. 10:34:54 SHEATH Prelude 6Fr 0.035 (GKL-6X-09-035) opened to sterile field. 10:38:01 --------ALL STOP TIME OUT------ 10:38:02 Final Timeout: patient, procedure, and site verified with staff and physician. All members of the team are in agreement. 10:38:04 Left groin site verified by team. 10:38:07 Physical assessment completed. ASA score P 2 - A patient with mild systemic disease as per Gerry Montes MD. 10:38:09 Sedation plan: IV Moderate Sedation Medication:Versed, Fentanyl 10:38:27 Fentanyl 50 mcg I.V. was administered by Abraham Basurto RN; for sedation; 10:38:34 Versed 1 mg I.V. was administered by Abraham Basurto RN; for sedation; 10:41:44 Zero performed for pressure channel P1 10:42:40 Fentanyl 50 mcg I.V. was administered by Abraham Basurto RN; for sedation; 10:42:43 Versed 1 mg I.V. was administered by Abraham Basurto RN; for sedation; 10:44:20 GUIDE 6FR HS II catheter ([id number]) opened to sterile field. 10:44:25 Procedure started. 10:44:31 Local anesthetic to left femerol artery with Lidocaine 2% by Gerry Montes MD.INITIAL ACCESS ONLY 10:44:55 Fentanyl 50 mcg I.V. was administered by Abraham Basurto RN; for sedation; 10:44:56 A 6 Fr Short sheath was inserted into the Left Femoral artery 10:45:04 6 Fr HS 2 guide catheter was inserted over the wire 10:45:08 Heparin Bolus 4000 units I.V. was administered by Abraham Basurto RN; for anticoagulation; 10:46:05 Choice dPT XS wire advanced. 10:46:11 [place] IVUS Catheter (88902C) opened to sterile field. 10:46:16 Wire advanced across lesion. 10:46:37 IVUS catheter advanced over wire. 10:47:40 IVUS pass to RCA lesion performed. 10:47:46 IVUS catheter removed over wire. 10:47:57 Fentanyl 50 mcg I.V. was administered by Abraham Basurto RN; for sedation; 10:49:43 Place stent Inflation Number: 1 A CHANTAL RX 4.0 x 34 stent ([id number]) was prepped and advanced across the Mid RCA. The stent was deployed at 17 DANIAL for 0:10 (min:sec). 10:50:19 Inflation number: 2 The stent balloon was then re-inflated across the Mid RCA to 9 DANIAL for 0:10 (min:sec). 10:51:08 EXOSEAL 6Fr (EX600) opened to sterile field. 10:51:16 Stent catheter was removed intact over wire. 10:51:17 Wire removed. 10:51:17 Guide catheter removed. 10:51:24 Sheath removed intact; hemostasis achieved with Exoseal to the Left Femoral artery. 10:51:26 Procedure ended.(Physican Out) 10:55:11 Fluoroscopy time 02.40 minutes. 10:55:15 Fluoroscopy dose: 166 mGy 10:55:15 Flurop Dose total: 166 10:55:17 Contrast amount:Isovue 300 30ml. 10:55:23 Sharps counted by scrub and verified by R.N. 10:55:24 Insertion/operative site no bleeding no hematoma. 10:55:27 Post-op/insertion site Left Femoral artery dressed using a 4 x 4 and Tegaderm. 10:55:28 Post Procedure Pulses reassessed and unchanged 10:55:30 Post-procedure physical assessment completed. ASA score P 2 - A patient with mild systemic disease as per Gerry Montes MD. 10:55:33 Post procedure rhythm: unchanged. 10:55:35 Estimated blood loss: 10 ml 10:55:37 Post procedure instruction explained to patient.Patient verbalizes understanding. 10:55:37 Patient needs reinforcement of post procedure teaching. 10:55:45 Procedure type changed to Cath procedure, Diagnostic procedure, FFR/IVUS, Intra-Coronary IVUS Initial, PCI procedure, Coronary Stent, Coronary Stent Initial 10:56:05 Procedure and supply charges have been captured, reviewed, submitted and are correct. 10:56:07 Procedure Complication : No complications 10:58:33 Vital chart was stopped 10:58:34 See physician's report for complete and final results. 10:58:39 Report given to Pre/Post Procedure Room. 10:59:15 Patient transfered to Pre/Post Procedure Room with Bed. 10:59:17 Procedure ended. 10:59:17 Full Disclosure recording stopped 10:59:20 End room use (Document Last) Intervention Summary Intervention Notes Time ActionType Lesion and Equipment Used Action# Pressure Duration Attributes 10:49:43 Place stent Mid RCA CHANTAL RX 4.0 x 1 17 00:10 34 stent ([id number]) 10:50:19 Reinflate Mid RCA CHANTAL RX 4.0 x 2 9 00:10 stent 34 stent balloon ([id number]) Device Usage Item Name Manufacture Quantity Catalog Number Hospital Part Current Minimal Lot# / Charge Number Stock Stock Serial# Code ACIST Manifold Acist 1 60943 [id number] 443144 [id number] 5 (51348) Medical Systems Inc Tegaderm 4 x 4 3M 1 1626W 326188 249298 961238 5 (1626W) ACIST Hand Acist 1 51020 968772 771918 441096 5 Control (75092) [employer] Inc ACIST Syringe Acist 1 10281 560707 972020 976878 20 (02009) [employer] Systems Inc Medline Cath Cardinal 1 [id number] 571472 69186 367115 5 MyForce ([id number]) Bag Decanter Microtek 1 720330 95642 950352 5 () Medical Inc. DIAGNOSTIC WIRE [place] 1 028572 798955 901834 832528 30 .035 260cm J wire (930253) INFLATOR Merit Merit 1 ZU0065 118305 217320 720689 15 [employer] (JT0750) CHOICE PT Extra [place] 1 [id number] 082706 075036 220948 5 Support 182cm Scientific wire ([id number]) SHEATH Prelude Merit 1 [id number]-[id number] 247713 2624551 201285 5 6Fr 0.035 Medical (WOL-6Y-67-035) GUIDE 6FR HS II Medtronic 1 [id number] 030946 43700 735363 1 catheter (IA5FHGD) [place] 1 27400T 371488 491839 724980 8 [place] IVUS Catheter (31886R) CHANTAL RX 4.0 x Medtronic 1 [id number] 013191 0955970 115048 5 [id number] 34 stent ([id number]) EXOSEAL 6Fr Cardinal 1 EX600 214482 555147 373778 10 (EX600) Health Signature Audit [place] Stage Time Signature Unsigned Intra-Procedure 11/19/2017 Memo Velasquez 10:59:32 AM RT(R) Signatures Monitor : Memo Velasquez RT Signature : Date : Time : [place] [id number] [place] [address]
--- NOTE | ~2017-11-19 | HP ---
PATIENT: VEENA WILKINS MEDICAL RECORD: [id number] ACCOUNT: [id number] LOCATION:[place] : 51 ADMISSION DATE: 11/19/17 HISTORY AND PHYSICAL EXAMINATION DATE OF SERVICE: 11/19/2017 ADMITTING DIAGNOSES: 1. Angina. 2. Coronary artery disease. 3. PTCA stent of the left circumflex with concomitant disease of LAD and diagonal. HISTORY OF PRESENT ILLNESS: Ms. Wilkins presents with unstable anginal symptomatology, found to have significant disease of the LAD, diagonal, and circumflex, underwent successful PTCA stent of the circumflex. She is now brought back for PTCA stent of the LAD diagonal. PHYSICAL EXAMINATION: GENERAL APPEARANCE: Well-nourished, well-developed, appears stated age. Level of distress, comfortable. PSYCHIATRIC: Mental status, alert, normal affect. Orientation, oriented to time, place and person. EYES: Lids and conjunctiva, noninjected. No discharge, no pallor. ENT: Lips, teeth, gums, normal dentition. Oropharynx, no cyanosis, no pallor. NECK: Carotid arteries, bilateral normal upstroke, no bruits, no thrills. JUGULAR VEINS: No jugular venous pressure or distention. CERVICAL LYMPH NODES: Nontender, nonenlarged. THYROID: Not enlarged. Nontender. No nodules. LUNGS: Respiratory effort, unlabored. CHEST: Normal curvature. No thoracic deformity. No chest wall tenderness. Percussion, resonant. Auscultation, clear. No wheezes, no rales, no rhonchi. CARDIOVASCULAR: Precordial exam, nondisplaced. No heaves or pericardial thrills. Rate and rhythm, regular. Heart sounds, normal S1, normal S2. No S3, no gallop, no rub. Systolic murmur, not heard. Diastolic murmur, not heard. EXTREMITIES: No cyanosis, no edema. Peripheral pulses, full and equal in all extremities, except as noted. No bruits appreciated. ABDOMEN: Soft, nondistended. Normal aorta. No bruit. Nontender. No masses. Liver, nontender, no hepatomegaly. Spleen, nontender, no splenomegaly. MUSCULOSKELETAL: No joint tenderness. No joint swelling. No erythema. NEUROLOGICAL: Normal gait, normal strength, normal tone. SKIN: Warm and dry. REVIEW OF SYSTEMS: The patient reports easy bruising but reports no swollen glands. The patient reports no fever, no night sweats, no significant weight gain, no significant weight loss. No significant exercise tolerance. The patient reports no dry eyes, no irritation, no vision change. Patient reports no difficulty hearing and no ear pain. Patient reports no frequent nose bleeds or nose and sinus problems. Patient reports on arm pain on exertion. No shortness of breath while lying down. No history of heart murmur. Patient reports no cough, no wheezing or coughing up blood. Patient reports no abdominal pain, no vomiting. Normal appetite. No diarrhea and not vomiting blood. No nausea and no constipation. Patient reports no incontinence. No difficulty urinating. No hematuria. No increased frequency. Patient reports no muscle aches. No weakness, no arthralgias, no back pain. No swelling of the HISTORY AND PHYSICAL [id number] CLAUDETTEVEENA extremities. Patient reports no abnormal mole, no jaundice, no rashes. Reports no loss of consciousness. No weakness and no numbness. No seizures, dizziness, or headaches. The patient reports no depression, no sleep disturbance, feeling safe in a relationship and no alcohol abuse. Patient reports on fatigue. Reports no runny nose or sinus pressure. No itching, no hives, and no frequent sneezing. OVERALL IMPRESSION: Anginal symptomatology with significant disease of the LAD and diagonal. We will proceed with transcatheter revascularization of this territory. TRANSINT:[id number] Voice Confirmation ID: [id number] DOCUMENT ID: [id number] RODNEY COLBERT MD at 1748 CC: [id number] DICTATION DATE: 11/18/17 1602 INSTRUCTIONAL TECHNOLOGY FACILITATOR: 11/18/17 1626 DEP CLI 11/19/17 [place] [id number] [place] [id number]
[~2017-11-19 07:47] MED LIST: ACCOLATE20 MG PO; BAYER CHEWABLE81 MG PO; CELEXA40 MG PO; CLEOCIN HCL150 MG PO; EFFEXOR75 MG PO; HYDROCHLOROTH12.5 M1 PO; INSULIN; ISOSORBIDE MON120 M1 PO; LIPITOR20 MG PO; LIPITOR80 MG PO; METOPROLOL TAR100 M1 PO; NEURONTIN 400400 MG PO; NORVASC10 MG PO; PLAVIX75 MG PO; [UNRECOGNIZED DRUG - REMARK]
[2017-11-19 08:16] VITALS: BP 169/68; Ht 165.1 cm; Wt 100.5 kg
[2017-11-19 08:24] LABS: BASOPHILS 0.1 % (0-2); EOSINOPHILS 0.2 % (0-7); HEMATOCRIT 44.1 % (36.0-48.0); HEMOGLOBIN 15.5 g/dL (12-16); IMMATURE GRANULOCYTES 0.2 % (0-5); MCH 30.5 pg (26.0-34.0); MCHC 35.1 g/dL (31.0-37.0); MCV 86.8 fL (80.0-100.0); MEAN PLATELET VOLUME 10.6 fL (7.4-10.4); MONOCYTES 1.8 % (2-11); NEUTROPHILS 85.7 % (40-80); PLATELET COUNT 223 10x3/uL (130-400); RBC 5.08 10x6/uL (4.00-5.40)
[2017-11-19 08:37] LABS: ANION GAP 12.6 mmol/L (8-16); CALCIUM 8.9 mg/dL (8.5-10.1); CREATININE - SERUM 1.4 mg/dL (0.6-1.3); POTASSIUM - SERUM 4.6 mmol/L (3.5-5.1)
== END | disposition home or self-care (01) ==
LOC: D.CATH 07:47
PROVIDERS: Internal Medicine Interventional Cardiology
DX: I25.119 Atherosclerotic heart disease of native coronary artery with unspecified angina pectoris (principal)

== ENCOUNTER 2018-01-29 18:15 | Observation (INO) | payer OTHER ==
[~2018-01-29] VITALS: Ht 165.1 cm; Wt 107.2 kg
--- NOTE | ~2018-01-29 | OP ---
PATIENT NAME: VEENA WILKINS MEDICAL RECORD: [id number] :51 LOCATION:D.M2 D.2122 ADMISSION DATE:01/29/18 SURGEON: JAVIER JAMES MD DATE OF OPERATION: 01/30/2018 PROCEDURE: Left heart catheterization, selective coronary angiography, right radial approach. CATHETERS: Radial sheath, [place] catheter. The procedure was well tolerated. Proceeded to PTCA and stenting LAD. FINDINGS: Left ventriculography in 30-degree RODAS view; normal wall motion. Normal systolic function. CORONARY ANATOMY: LEFT MAIN: Left main is free of disease. LAD: Proximal to the previously placed stents shows an 80% hazy stenosis right at the ostium. Previously placed stent is widely patent. CIRCUMFLEX: In the circumflex, previously placed stent is widely patent. There is a distal OM with about a 90% ostial stenosis, too small for intervention. RIGHT CORONARY ARTERY: Again, widely patent stents. Distal in the PDA has about 80% stenosis, too small for intervention. IMPRESSION AND PLAN: Intervention to LAD momentarily. Medical management of small vessel disease. INTERVENTION: EBU guide catheter provided excellent guide catheter support followed by 300-cm Whisper wire placed across tightly occluded ostial LAD down this portion of vessel. Stent deployed was 3.5 x 8-mm Lagrange drug-eluting stent up to 14 atmospheres for 45 seconds. Final angiography shows excellent resolution of an 80% proximal stenosis with marked haziness to no significant residual. REJI flow was 3 throughout the procedure. No snowplowing into the circumflex itself. Sheath was closed with a TR band. TRANSINT:[id number] Voice Confirmation ID: [id number] DOCUMENT ID: [id number] JAVIER JAMES MD at 1313 CC: [id number] DICTATION DATE: 01/30/18 1544 HOUSE MOVER HELPER: 01/30/18 1615 DIS IN 01/31/18 [facility] [address] [place] [address]
--- NOTE | ~2018-01-29 | HEMODYNAMI ---
PATIENT:VEENA WILKINS MEDICAL RECORD: [id number] : 51 LOCATION:[facility] D.[address] [facility]# [id number] ADMISSION DATE: 01/29/18 Generatedon:01/30/201815:34 Patient name: VEENA WILKINS Patient #: [id number] SSN: : 1955 Date of study: 01/30/2018 Page: Of Hemodynamic Procedure Report Patient Data Patient Demographics Procedure consent was obtained First Name: VEENA Gender: Female Last Name: CLAUDETTE : 1955 [facility] Initial: NASIM Age: 62 year(s) Patient #: [id number] Race: Unknown Additional ID: [id number] Contact details Address: [address] [place] [address] State: [place] City: [place] Zip code: [address] Past Medical History Allergies Allergen Reaction Date Comments Reported Other allergy 11/13/2017 IV DYE, COEINE, PCN Other allergy 01/30/2018 IV CONTRAST DYE, PCN, CODEINE Admission Admission Data Admission Date: 01/29/2018 Admission Time: 21:17 Room #: D.2122 Lab Results Lab Result Date: 01/30/2018 Lab Result Time: 0:00 Biochemistry Name Units Result Min Max BUN mg/dl 12 --(-*--)-- 7 18 Creatinine mg/dl 1.2 --(---*)-- 0.6 1.3 CBC Name Units Result Min Max Hemoglobin g/dl 14 --(*---)-- 13.5 17.5 Procedure Procedure Types Cath Procedure Diagnostic Procedure LHC LHC w/Coronaries Sedation Charges Moderate Sedation up to 15 minutes PCI Procedure Coronary Stent Coronary Stent Initial Procedure Description Procedure Date Procedure Date: 01/30/2018 Procedure Start Time: 15:16 Procedure End Time: 15:33 Procedure Staff Name Function Jaime Olsen MD Performing Physician Chriss Wright RN Nurse Anila Godinez RT Monitor Hallie Ford RT Scrub Procedure Data Cath Procedure Fluoroscopy Diagnostic fluoroscopy Total fluoroscopy Time: 3.6 time: 3.6 min min Diagnostic fluoroscopy Total fluoroscopy dose: 651 dose: 651 mGy mGy Contrast Material Contrast Material Type Amount (ml) Isovue 300 71 Entry Location Entry Primary Successful Side Size Upsize Upsize Entry Closure Jurado ccessful Closure Location (Fr) 1 (Fr) 2 (Fr) Remarks Device Remarks Radial Right 6 Fr Mechanical artery Short Compression Estimated blood loss: 10 ml Diagnostic catheters Device Type Used For End Catheter Placement DIAGNOSTIC Woodson 110cm 5 Procedure Fr catheter ([id number]) Procedure Complications No complications Procedure Medications Medication Administration Route Dosage Oxygen etCO2 Nasal cannula 2 l/min Lidocaine 2% added to field 20 Heparin Flush Bag added to field 2 bags (1000units/500ml NS) 0.9% NaCl I.V. 100 ml/hr Radial Cocktail I.A. 1 syringe (Verapomil 2mg/Nitro 400mcg/Heparin 1500units) Versed I.V. 1 mg Fentanyl I.V. 50 mcg Plavix P.O. 75 mg Versed I.V. 1 mg Fentanyl I.V. 50 mcg Heparin Bolus I.V. 4000 units Hemodynamics Rest HGB: 14 (g/dl) Heart Rate: 72 (bpm) Pressure Samples Time Site Value (mmHg) Purpose Heart Use Rate(bpm) 15:19 LV 151/-22,9 Snapshot 75 15:20 AO 132/71(98) Pullback 70 15:20 LV 106/28,11 Pullback 70 Gradients Valve Time Site 1 Site 2 Mean SEP/DFP Peak To Heart Use (mmHg) (sec/min) Peak Rate (mmHg) (bpm) Aortic 15:20 LV AO 0 70 106/28,11 132/71(98) Calculations Valve P-P Mean Valve Index Valve Source Name Gradient Area Flow (cm2) Aortic 0 0 Snapshots Pre Cath Intra NCS Post Cath Vital Signs Time Heart Resp SPO2 etCO2 NIBP (mmHg) Rhythm Pain Sedation Rate (ipm) (%) (mmHg) Status Level (bpm) 15:04:56 71 16 93 30.8 186/95(157) NSR 0 (11) 10(A) , No pain 15:10:03 71 14 92 19.5 193/88(142) NSR 0 (11) 10(A) , No pain 15:15:13 72 13 94 32.3 190/86(129) NSR 0 (11) 9(A) , No pain 15:20:16 74 11 95 27 131/72(96) NSR 0 (11) 9(A) , No pain 15:25:06 73 11 94 32.3 147/82(115) NSR 0 (11) 9(A) , No pain 15:31:01 76 12 95 29.3 178/86(132) NSR 0 (11) 10(A) , No pain Medications Time Medication Route Dose Verified Delivered Reason Not es Effectiveness by by 15:01:33 Plavix P.O. 75 mg Jaime Buffie for [facility] Jensen Wright RN antiplatelet therapy 15:05:22 Oxygen etCO2 2 l/min Jaime Buffie used for Nasal [facility] Jensen Wright RN procedure cannula 15:05:28 Lidocaine 2% added 20ml Jaime Sandoval for local to vial [facility] anesthetic field MD ANDRADE 15:05:37 Heparin Flush added 2 bags Jaime Sandoval used for Bag to [facility] procedure (1000units/500ml field MD ANDRADE NS) 15:05:46 0.9% NaCl I.V. 100 Jaime Banerjee Per physician ml/hr [facility] Jensen Wright RN, MD 15:13:51 Versed I.V. 1 mg Jaime Banerjee for sedation [facility] Jensen Wright RN, MD 15:13:56 Fentanyl I.V. 50 mcg Jaime Banerjee for sedation [facility] Jensen Wright RN, MD 15:19:51 Radial Cocktail I.A. 1 Jaime Sandoval for (Verapomil syringe [facility] vasodilation 2mg/Nitro MD ANDRADE 400mcg/Heparin 1500units) 15:20:05 Versed I.V. 1 mg Jaime Banerjee for sedation [facility] Jensen Wright RN, MD 15:20:08 Fentanyl I.V. 50 mcg Jaime Banerjee for sedation [facility] Jensen Wright RN, MD 15:23:51 Heparin Bolus I.V. 4000 Jaime Banerjee for cari ified units St Jensen Wright RN anticoagulation with dr MD mitchell Procedure Log Time Note 14:23:15 Time tracking: Regular hours (M-F 7:00 - 5:00) 14:23:20 Plan of Care:Hemodynamics will remain stable., Cardiac rhythm will remain stable., Comfort level will be maintained., Respiratory function will remain adequate., Patient/ family verbilizes understanding of procedure., Procedure tolerated without complication., Recovers from procedure without complications.. 14:24:53 Patient allergic to Other allergyIV CONTRAST DYE, PCN, CODEINE 14:25:22 Lab Result : BUN 12 mg/dl 14:: Lab Result : Hemoglobin 14 g/dl 14:: Lab Result : Creatinine 1.2 mg/dl 14:35:43 Anila Godinez RT(R) sent for patient. Start room use. 14:45:56 Patient received from Med II to CCL 1 Alert and oriented. Tansferred to table in Supine position. 14:45:56 Warm blankets applied, and tracy hugger turned on for patient comfort. 14:45:57 Correct patient and procedure confirmed by team. 14:45:58 Signed procedure consent form obtained from patient. 14:45:59 ECG and BP/O2 sat monitors applied to patient. 14:47:51 Full Disclosure recording started 14:49:18 PATIENT IV LOCATED IN RT WRIST. PATIENT C/O DISCOMFORT. 14:49:52 IV right wrist D/C'd due to site irritation. 14:50:07 IV started by Chriss Wright RN inleft forearm with a 22 gauge IV catheter with 0.9% NaCl at KVO. 14:50:14 IV CATHETER 22g opened to sterile field. 15:01:33 Plavix 75 mg P.O. was administered by Chriss Wright RN; for antiplatelet therapy; 15:02:37 Vital chart was started 15:02:38 Baseline sample Acquired. 15:02:41 Rhythm: sinus rhythm 15:02:46 Pre-procedure instructions explained to patient. 15:02:46 Pre-op teaching completed and patient verbalized understanding. 15:02:48 Family unavailable. 15:02:49 Patient NPO since Midnight. 15:02:54 Is the patient allergic to Iodine/contrast media? Yes. 15:02:55 Was the patient premedicated? Yes 15:02:56 Is patient on blood thinner?Yes 15:02:58 ACC The patient was administered the following blood thiners within the last 24 hours: ACCPlavix 15:02:59 Patient diabetic? Yes. 15:03:00 If diabetic: On Metformin? No 15:03:06 Previous problem with sedation/anesthesia? No ? 15:03:06 Snore? Yes 15:03:07 Sleep apnea? No 15:03:09 Deviated septum? No 15:03:15 Opens mouth fully? Yes 15:03:15 Sticks out tongue? Yes 15:03:21 Airway obstruction? Yes COPD 15:03:25 Dentures? No ? 15:03:31 Modified Ernesto's test Ulnar < 7 seconds 15:03:33 Patient pain scale 0/10 ?. 15:03:47 Lab results completed and on chart. 15:03:50 Right Radial & Right Groin area was prepped with chlora-prep and draped in sterile fashion 15:03:51 Alarms reviewed by R. N. 15:03:52 Sharps counted by scrub and verified by R.N. 15:03:54 Use device set Radial Dx or PCI 15:03:55 ACIST Syringe (72606) opened to sterile field. 15:03:56 Bag Decanter (2002S) opened to sterile field. 15:03:57 ACIST Hand Control (78732) opened to sterile field. 15:03:57 ACIST Manifold (91143) opened to sterile field. 15:04:01 Medline Cath Pack ([id number]) opened to sterile field. 15:04:01 DIAGNOSTIC WIRE .035 260cm J wire (376670) opened to sterile field. 15:04:03 MBrace Wrist Support ([id number]) opened to sterile field. 15:04:04 SHEATH 6Fr Prelude Radial ([id number]) opened to sterile field. 15:05:22 Oxygen 2 l/min etCO2 Nasal cannula was administered by Chriss Wright RN; used for procedure; 15:05:28 Lidocaine 2% 20ml vial added to field was administered by Jaime Olsen MD; for local anesthetic; 15:05:37 Heparin Flush Bag (1000units/500ml NS) 2 bags added to field was administered by Jaime Olsen MD; used for procedure; 15:05:46 0.9% NaCl 100 ml/hr I.V. was administered by Chriss Wright RN; Per physician; 15:09:39 --------ALL STOP TIME OUT------ 15:09:40 Final Timeout: patient, procedure, and site verified with staff and physician. All members of the team are in agreement. 15:09:43 Right Radial & Right Groin site verified by team. 15:09:45 Physical assessment completed. ASA score P 3 - A patient with severe systemic disease as per Jaime Olsen MD. 15::49 Sedation plan: IV Moderate Sedation Medication:Versed, Fentanyl 15:13:35 Zero performed for pressure channel P1 15::51 Versed 1 mg I.V. was administered by Chriss Wright RN; for sedation; 15::56 Fentanyl 50 mcg I.V. was administered by Chriss Wright RN; for sedation; 15:16:08 Procedure started. 15:16:28 Local anesthetic to right radial artery with Lidocaine 2% by Jaime Olsen MD.INITIAL ACCESS ONLY 15:17:47 A 6 Fr Short sheath was inserted into the Right Radial artery 15:18:47 A DIAGNOSTIC Woodson 110cm 5 Fr catheter ([id number]) was advanced over the wire and used for Procedure. 15:19:26 LV gram done using RODAS 15:19:28 Injector settings: Ml/sec: 7, Volume: 15, 15:19:51 Radial Cocktail (Verapomil 2mg/Nitro 400mcg/Heparin 1500units) 1 syringe I.A. was administered by Jaime Olsen MD; for vasodilation; 15:19:51 LV hemodynamics recorded. 15:20:02 EF : 55 % 15:20:05 Versed 1 mg I.V. was administered by Chriss Wright RN; for sedation; 15:20:08 Fentanyl 50 mcg I.V. was administered by Chriss Wright RN; for sedation; 15:20:50 LCA angiography performed. 15:22:01 RCA angiography performed. 15:22:03 Catheter exchanged over wire. 15:22:48 INFLATOR Merit BasixCompak (DF7015) opened to sterile field. 15:22:52 WHISPER 300cm guide wire ([id number]) opened to sterile field. 15:23:32 GUIDE 6FR XBLAD 3.5 catheter ([id number]) opened to sterile field. 15:23:51 Heparin Bolus 4000 units I.V. was administered by Chriss Wright RN; for anticoagulation; verified with dr mitchell 15:23:51 6 Fr XBLAD 3.5 guide catheter was inserted over the wire 15:29:13 WHISPER wire advanced. 15:29:15 Wire advanced across lesion. 15:29:18 Place stent Inflation Number: 1 A CHANTAL OTW 3.5 x 08 stent ([id number]) was prepped and advanced across the Prox LAD. The stent was deployed at 14 DANIAL for 0:15 (min:sec). 15:29:26 Stent catheter was removed intact over wire. 15:29:26 Wire removed. 15:29:27 Guide catheter removed. 15:29:35 Procedure ended.(Physican Out) 15:30:11 TR BAND Standard ([id number]) opened to sterile field. 15:30:22 Sheath removed intact; hemostasis achieved with Mechanical Compression to the Right Radial artery. 15:30:28 Fluoroscopy time 03.60 minutes. 15:30:33 Flurop Dose total: 651 15::33 Fluoroscopy dose: 651 mGy 15:30:36 Contrast amount:Isovue 300 71ml. 15:30:38 Sharps counted by scrub and verified by R.N. 15:30:39 TR band inflated with 15cc of air. 15:30:49 Post-procedure physical assessment completed. ASA score P 3 - A patient with severe systemic disease as per Jaime Olsen MD. 15:30:52 Post procedure rhythm: sinus rhythm 15:30:56 Estimated blood loss: 10 ml 15::58 Post procedure instruction explained to patient.Patient verbalizes understanding. 15:30:58 Patient needs reinforcement of post procedure teaching. 15:33:07 Procedure type changed to Cath procedure, Diagnostic procedure, LHC, LHC w/Coronaries, Sedation Charges, Moderate Sedation up to 15 minutes, PCI procedure, Coronary Stent, Coronary Stent Initial 15:33:45 Procedure and supply charges have been captured, reviewed, submitted and are correct. 15:33:48 Procedure Complication : No complications 15:33:50 Vital chart was stopped 15:33:50 See physician's report for complete and final results. 15:33:54 Report given to Med II. 15:33:56 Patient transfered to Med II with Bed. 15:33:58 Procedure ended. 15:33:58 Full Disclosure recording stopped 15:34:00 End room use (Document Last) Intervention Summary Intervention Notes Time ActionType Lesion and Equipment Action# Pressure Duration Attributes Used 15:29:18 Place stent Prox LAD CHANTAL OTW 3.5 1 14 00:15 x 08 stent ([id number]) Device Usage Item Name Manufacture Quantity Catalog Number Hospital Part Current Minimal Lot# / Charge Number Stock Stock Serial# Code IV CATHETER 22g B. Domínguez 1 [id number] 054514 722654 755813 5 ACIST Syringe Acist 1 77336 312572 064047 632966 20 (50346) [employer] Inc Bag Decanter Microtek 1 2001S 444726 38817 868150 5 (2001S) Medical Inc. ACIST Hand Acist 1 34638 533822 426810 993740 5 Control (95214) Medical Systems Inc ACIST Manifold Acist 1 54110 943576 583178 950493 5 (89860) Medical Systems Inc Medline Cath Cardinal 1 [id number] 562233 32035 159952 5 Pack Health ([id number]) DIAGNOSTIC WIRE [facility] Sylvester 1 635478 392031 154220 386987 30 .035 260cm J wire (611125) MBrace Wrist Advanced 1 140-0250-00 183548 35022 221481 5 Support Vascular ([id number]) Dynamics SHEATH 6Fr Merit 1 [id number] 565185 229684 474625 5 Prelude Radial Medical ([id number]) DIAGNOSTIC Terumo 1 40-3381 950561 479923 814130 5 Woodson 110cm 5 Fr catheter (465287) INFLATOR Merit Merit 1 AP7105 094097 313604 076518 15 BasixCompak Medical (XC0820) WHISPER 300cm Tran 1 [id number] 279382 944247 498725 5 guide wire Vascular ([id number]) GUIDE 6FR XBLAD Cardinal 1 [id number] 508798 698571 034243 10 3.5 catheter Health ([id number]) CHANTAL OTW 3.5 x Medtronic 1 [id number] 906337 8873835 513515 5 [id number] 08 stent ([id number]) TR BAND Terumo 1 [id number] 826865 539994 573941 40 Standard ([id number]) Signature Audit [place] Stage Time Signature Unsigned Intra-Procedure 01/30/2018 Anila Godinez 3:34:36 PM RT(R) Signatures Monitor : Anila Herbert Signature : RT Date : Time : [address] [place] [address]
--- NOTE | ~2018-01-29 | HP ---
PATIENT: VEENA WILKINS MEDICAL RECORD: [id number] ACCOUNT: [id number] LOCATION:[address] : [birth year] ADMISSION DATE: 01/29/18 PCP: No PCP HISTORY AND PHYSICAL EXAMINATION DATE OF ADMISSION: 01/29/2018 REASON FOR ADMISSION: Chest pain. HISTORY OF PRESENT ILLNESS: This is a 62-year-old white female with a history of heart disease and diabetes, who presented to ER complaining of chest pain to the jaw, radiated also to the back and arms, started acutely at 1600 hours on 01/29/2018. The patient states she has had 13 stents and 3 MIs. She states that she has been trying to go to the NH, gets her medicines there, but she does not go very often. She has diabetes and at one time, states that she follows a sliding scale, but admits that she has not taken her blood sugar in days. She continues to smoke. She is admitted. PAST MEDICAL AND SURGICAL HISTORY: Coronary artery disease, stroke, diabetes, hypertension, COPD, arthritis, depression. PAST SURGICAL HISTORY: Cardiac stents. She has some sort of shunt placed in her back years ago. ALLERGIES: PENICILLIN, CODEINE, AND IV CONTRAST DYE. FAMILY HISTORY: Parents are both from heart disease. SOCIAL HISTORY: She is , does not work. HABITS: She continues to smoke. Denies any alcohol or drugs. HOME MEDICATIONS: Plavix 75 mg once a day, Norvasc 5 mg at bedtime, metoprolol tartrate 50 mg twice a day, aspirin 81 mg a day, hydrochlorothiazide 12.5 every day p.r.n. swelling, Accolate 20 mg twice a day, isosorbide mononitrate 120 once a day and she takes some form of insulin 25 units once a day. PHYSICAL EXAMINATION: VITAL SIGNS: Temperature 97.9, pulse 67, respirations 18, blood pressure 177/79, O2 saturation 92%. GENERAL: She is awake and alert. She does not appear in acute distress. SKIN: Warm and dry. HEENT: Normal. NECK: Supple. No JVD or bruit. HEART: Regular rate and rhythm. LUNGS: Clear. ABDOMEN: Soft. EXTREMITIES: No edema. LABORATORY DATA: CBC with a white count of 9300, hemoglobin 14, hematocrit 39. Basic metabolic panel is okay except potassium a little high at 5.2, glucose high at 236. INR 1.02, magnesium 1.5. Liver enzymes were all okay except AST mildly elevated at 49. Chest x-ray shows nothing acute. EKG normal sinus rhythm. HISTORY AND PHYSICAL [id number] VEENA WILKINS ASSESSMENT: 1. Chest pain in a diabetic with a history of heart disease. 2. Diabetes, most likely poor control. 3. Hypertension. 4. Tobacco abuse. PLAN: We will check an A1c, lipids. Cardiology has been consulted. Other tests or procedures as warranted. TRANSINT:[id number] Voice Confirmation ID: [id number] DOCUMENT ID: [id number] ESHA STARKEY MD at 2057 CC: [id number] DICTATION DATE: 01/30/18845 TOLL SETTLEMENT CLERK: 01/30/18 09 ADM IN [place] [address] [place] [address]
--- NOTE | ~2018-01-29 | CN ---
PATIENT NAME:VEENA WILKINS MEDICAL RECORD: [id number] : 51 LOCATION:. D.2122 ADMIT DATE: 01/29/18 ACCOUNT: [id number] CONSULTING PHYSICIAN: JAVIER JAMES MD REFERRING PHYSICIAN: ESHA STARKEY MD DATE OF CONSULTATION: 01/30/2018 HISTORY OF PRESENT ILLNESS: A 62-year-old lady with a known history of coronary artery disease, status post multivessel interventions, recurrent chest pain, is not felt to have stenosed since her last admission, has not tried to exercise. Tired, fatigued. Had onset of chest pain yesterday with nausea, shortness of breath, diaphoresis. This occurred at rest. Cardiac enzymes are negative. We are asked to her concerning her cardiovascular status. PAST MEDICAL HISTORY: Includes; 1. History of hypertension. 2. Diabetes mellitus. 3. Dyslipidemia. ALLERGIES: CONTRAST, PENICILLIN, AND CODEINE. MEDICATIONS: Typically include Accolate 20 mg p.o. b.i.d., hydrochlorothiazide 12.5 every day, aspirin 81 every day, metoprolol 50 b.i.d., amlodipine 5 every day, Plavix 75 every day. REVIEW OF SYSTEMS: The patient reports easy bruising but reports no swollen glands. The patient reports no fever, no night sweats, no significant weight gain, no significant weight loss. No significant exercise tolerance. The patient reports no dry eyes, no irritation, no vision change. Patient reports no difficulty hearing and no ear pain. Patient reports no frequent nose bleeds or nose and sinus problems. Patient reports on arm pain on exertion. No shortness of breath while lying down. No history of heart murmur. Patient reports no cough, no wheezing or coughing up blood. Patient reports no abdominal pain, no vomiting. Normal appetite. No diarrhea and not vomiting blood. No nausea and no constipation. Patient reports no incontinence. No difficulty urinating. No hematuria. No increased frequency. Patient reports no muscle aches. No weakness, no arthralgias, no back pain. No swelling of the extremities. Patient reports no abnormal mole, no jaundice, no rashes. Reports no loss of consciousness. No weakness and no numbness. No seizures, dizziness, or headaches. The patient reports no depression, no sleep disturbance, feeling safe in a relationship and no alcohol abuse. Patient reports on fatigue. Reports no runny nose or sinus pressure. No itching, no hives, and no frequent sneezing. SOCIAL HISTORY: Actually lives in [place]. Spends most of the summer here in [place]. No set of exercise program. PHYSICAL EXAMINATION: GENERAL: Pleasant female, in no acute distress. VITAL SIGNS: Blood pressure 177/79, pulse 67 and regular. HEENT: Normocephalic, atraumatic. NECK: No bruits noted. HEART: Regular. A II/ systolic ejection murmur. LUNGS: Good air excursion. ABDOMEN: Soft, nontender. CONSULT REPORT [id number] VEENA WILKINS EXTREMITIES: Pulses 2+. There is no edema. NEUROLOGIC: Grossly intact. DIAGNOSTIC DATA: ECG shows nonspecific ST-T changes, probable LVH, unchanged from previous. IMPRESSION: Recurrent chest pain, somewhat early, but given multivessel intervention, we will plan angiography to rule out any restenosis, subacute thrombosis. Further recommendations based on the above. TRANSINT:[id number] Voice Confirmation ID: [id number] DOCUMENT ID: [id number] JAVIER JAMES MD at 0843 CC: [id number] DICTATION DATE: 01/30/18808 ENVIRONMENTAL ASSOCIATE: 01/30/18 0905 [facility] IN [place] [address] [place] [address]
[~2018-01-29 18:15] MED LIST changes: -INSULIN; -LIPITOR20 MG PO
[2018-01-29] MEDS ORDERED: INSULIN (18:31)
[2018-01-29 18:44] LABS: BASOPHILS 0.2 % (0-2); EOSINOPHILS 4.3 % (0-7); HEMATOCRIT 39.7 % (36.0-48.0); IMMATURE GRANULOCYTES 0.1 % (0-5); LYMPHOCYTES 24.2 % (15-50); MCH 30.7 pg (26.0-34.0); MCHC 35.3 g/dL (31.0-37.0); MCV 87.1 fL (80.0-100.0); MONOCYTES 6.7 % (2-11); NEUTROPHILS 64.5 % (40-80); PLATELET COUNT 190 10x3/uL (130-400); RBC 4.56 10x6/uL (4.00-5.40); RDW 13.2 % (11.5-14.5); WBC 9.3 10x3/uL (4.8-10.8)
[2018-01-29 18:55] LABS: APTT 26.1 SECONDS (22.8-39.4); INR 1.02 (0.85-1.17)
[2018-01-29 18:57] LABS: D-DIMER-QUANTITATIVE 0.83 ug/mLFEU (0.20-0.54)
[2018-01-29 19:03] LABS: ALBUMIN 2.7 g/dL (3.4-5.0); ALKALINE PHOSPHATASE 56 U/L (46-116); ALT (SGPT) 28 U/L (10-68); BILIRUBIN - TOTAL 0.49 mg/dL (0.2-1.3); CALC OSMOLALITY 279 mosm/kg (275-300); CALCIUM 8.2 mg/dL (8.5-10.1); CARBON DIOXIDE 28.8 mmol/L (21.0-32.0); CHLORIDE - SERUM 100 mmol/L (98-107); CREATININE - SERUM 1.2 mg/dL (0.6-1.3); POTASSIUM - SERUM 5.2 mmol/L (3.5-5.1); PROTEIN - SERUM 6.8 g/dL (6.4-8.2); SODIUM 136 mmol/L (136-145); UREA NITROGEN 12 mg/dL (7-18); eGFR NON AFRICAN AMERICAN 48 mL/min (90-120)
[2018-01-29 19:06] LABS: GLUCOSE 236 mg/dL (74-106)
[2018-01-29 19:27] LABS: CKMB 0.7 U/L (0.0-3.6); CREATINE KINASE 57 UL (21-215); MAGNESIUM - SERUM 1.5 mg/dL (1.8-2.4)
[2018-01-29 19:28] LABS: TROPONIN-I < 0.017 ng/mL (0.000-0.060)
[2018-01-29 20:19] VITALS: BP 182/83
[2018-01-30] VITALS: BP 135/60
[2018-01-30 04:00] VITALS: BP 114/46
[2018-01-30 07:34] VITALS: BP 177/79
[2018-01-30 10:32] LABS: CHOL - HDL RATIO 6.5 ratio (2.3-4.1); LDL-HDL RATIO 4.2 ratio (1.5-3.5)
[2018-01-30 13:38] VITALS: Ht 165.1 cm; Wt 107.2 kg
[2018-01-30 16:50] VITALS: BP 178/77
[2018-01-30 21:16] VITALS: BP 194/66
[2018-01-31 01:11] VITALS: BP 202/83
[2018-01-31 05:52] VITALS: BP 200/88
[2018-01-31 07:48] VITALS: BP 177/68
[2018-01-31 08:37] LABS: BASOPHILS 0 % (0-2); EOSINOPHILS 0 % (0-7); HEMATOCRIT 37.7 % (36.0-48.0); HEMOGLOBIN 12.9 g/dL (12-16); IMMATURE GRANULOCYTES 0.1 % (0-5); LYMPHOCYTES 19.5 % (15-50); MCH 29.7 pg (26.0-34.0); MCHC 34.2 g/dL (31.0-37.0); MCV 86.9 fL (80.0-100.0); MEAN PLATELET VOLUME 10.4 fL (7.4-10.4); MONOCYTES 6.4 % (2-11); RBC 4.34 10x6/uL (4.00-5.40); RDW 12.9 % (11.5-14.5); WBC 8.8 10x3/uL (4.8-10.8)
[2018-01-31 08:40] LABS: PLATELET COUNT 151 10x3/uL (130-400)
[2018-01-31 08:46] LABS: ANION GAP 9.9 mmol/L (8-16); CALCIUM 8.6 mg/dL (8.5-10.1); CARBON DIOXIDE 30.6 mmol/L (21.0-32.0); CREATININE - SERUM 1.2 mg/dL (0.6-1.3); POTASSIUM - SERUM 4.5 mmol/L (3.5-5.1)
[2018-01-31] MEDS ORDERED: LIPITOR20 MG PO (08:59)
== END 2018-01-31 11:34 | disposition home or self-care (01) ==
LOC: D.ER 18:15 → D.M2 21:17 → D.EDHOLD 21:17 → D.MS 21:18 → D.M2 22:01 → OBSVTIME 01-30 07:00 → D.M2 01-31 11:34
PROVIDERS: Family Medicine; Internal Medicine Interventional Cardiology
DX: I25.119 Atherosclerotic heart disease of native coronary artery with unspecified angina pectoris (principal); Z95.5 Presence of coronary angioplasty implant and graft; Z72.0 Tobacco use; I10 Essential (primary) hypertension; E11.9 Type 2 diabetes mellitus without complications; E78.5 Hyperlipidemia, unspecified; Z86.73 Personal history of transient ischemic attack (TIA), and cerebral infarction without residual deficits; J44.9 Chronic obstructive pulmonary disease, unspecified; F32.9 Major depressive disorder, single episode, unspecified

== ENCOUNTER 2018-07-29 17:49 | Observation (INO) | payer OTHER ==
[~2018-07-29] VITALS: Ht 165.1 cm; Wt 101.4 kg
--- NOTE | ~2018-07-29 | HEMODYNAMI ---
PATIENT:VEENA WILKINS MEDICAL RECORD: [id number] : 51 [facility] [id number] ADMISSION DATE: 07/29/18 Generatedon:07/30/201812:57 Patient name: VEENA WILKINS Patient #: [id number] SSN: : 1955 Date of study: 07/30/2018 Page: Of Hemodynamic Procedure Report Patient Data Patient Demographics Procedure consent was obtained First Name: VEENA Gender: Female Last Name: CLAUDETTE : 1955 [facility] Initial: NASIM Age: 63 year(s) Patient #: [id number] Race: Unknown Additional ID: [id number] Contact details Address: [address] [place] [address] State: [place] City: [place] Zip code: [address] Past Medical History Allergies Allergen Reaction Date Comments Reported Other allergy 11/13/2017 IV DYE, COEINE, PCN Other allergy 01/30/2018 IV CONTRAST DYE, PCN, CODEINE Other allergy 07/30/2018 PCN, CODEINE, IV CONTRAST DYE Admission Admission Data Admission Date: 07/29/2018 Admission Time: 20:21 Room #: D2117 Weight (lbs.): 222.67 Weight (kg.): 101 Lab Results Lab Result Date: 07/30/2018 Lab Result Time: 0:00 Biochemistry Name Units Result Min Max BUN mg/dl 17 --(---*)-- 7 18 Creatinine mg/dl 1.1 --(--*-)-- 0.6 1.3 CBC Name Units Result Min Max Hematocrit % 37 *-(----)-- 42 54 Hemoglobin g/dl 12.7 -*(----)-- 13.5 17.5 Procedure Procedure Types Cath Procedure Diagnostic Procedure LHC [facility] w/Coronaries PCI Procedure Coronary Stent Coronary Stent Initial x2 Procedure Description Procedure Date Procedure Date: 07/30/2018 Procedure Start Time: 12:27 Procedure End Time: 12:52 Procedure Staff Name Function Memo Velasquez RT Monitor Abraham Basurto RN Federal Mediation Commissioner Chriss Wright RN Nurse Gerry Montes MD Performing Physician Anila Godinez RT Scrub Procedure Data Cath Procedure Fluoroscopy Diagnostic fluoroscopy Total fluoroscopy Time: 6.4 time: 6.4 min min Diagnostic fluoroscopy Total fluoroscopy dose: dose: 1341 mGy 1341 mGy Contrast Material Contrast Material Type Amount (ml) Isovue 300 114 Entry Location Entry Primary Successful Side Size Upsize Upsize Entry Closure Jurado ccessful Closure Location (Fr) 1 (Fr) 2 (Fr) Remarks Device Remarks Radial Right 6 Fr Mechanical artery Short Compression Estimated blood loss: 10 ml Diagnostic catheters Device Type Used For End Catheter Placement DIAGNOSTIC [place] 110cm 5 Procedure Fr catheter ([id number]) Procedure Complications No complications Procedure Medications Medication Administration Route Dosage Oxygen etCO2 Nasal cannula 2 l/min Lidocaine 2% added to field 20 Heparin Flush Bag added to field 2 bags (1000units/500ml NS) 0.9% NaCl I.V. 100 ml/hr Radial Cocktail I.A. 1 syringe (Verapomil 2mg/Nitro 400mcg/Heparin 1500units) Versed I.V. 1 mg Fentanyl I.V. 50 mcg Heparin Bolus I.V. 4000 units Versed I.V. 1 mg Fentanyl I.V. 50 mcg Versed I.V. 0.5 mg Fentanyl I.V. 25 mcg Hemodynamics Rest HGB: 12.7 (g/dl) Heart Rate: 75 (bpm) Pressure Samples Time Site Value (mmHg) Purpose Heart Use Rate(bpm) 12:32 AO 110/69(87) Snapshot 77 Snapshots Pre Cath Intra NCS Post Cath Vital Signs Time Heart Resp SPO2 etCO2 NIBP (mmHg) Rhythm Pain Sedation Rate (ipm) (%) (mmHg) Status Level (bpm) 12:28:19 75 13 98 37.9 181/88(138) NSR 0 (11) 10(A) , No pain 12:32:37 74 1 94 19.3 107/65(103) NSR 0 (11) 9(A) , No pain 12:37:32 73 15 94 23 124/77(120) NSR 0 (11) 9(A) , No pain 12:42:37 76 17 94 31.2 149/85(114) NSR 0 (11) 9(A) , No pain 12:46:55 76 19 94 26.8 158/89(133) NSR 0 (11) 9(A) , No pain 12:51:17 76 19 95 34.2 165/86(139) NSR 0 (11) 10(A) , No pain Medications Time Medication Route Dose Verified Delivered Reason Not es Effectiveness by by 12:25:09 Lidocaine 2% added 20ml Gerry Garrett for local to vial Jyoti Montes MD anesthetic field 12:25:11 0.9% NaCl I.V. 100 Gerrykriss Banerjee Per physician ml/hr Jyoti Wright RN 12:25:14 Heparin Flush added 2 bags Gerry Garrett used for Bag to Jyoti Montes MD procedure (1000units/500ml field NS) 12:25:50 Oxygen etCO2 2 l/min Gerry Banerjee used for Nasal Jyoti Wright RN procedure cannula 12:27:43 Versed I.V. 0.5 mg Gerry Banerjee for sedation cari cr Wright RN with dr montes 12:27:48 Fentanyl I.V. 25 mcg Gerry Banerjee for sedation cari cr Wright RN with dr montes 12:31:21 Radial Cocktail I.A. 1 Gerry Garrett for (Verapomil syringe Jyoti Montes MD vasodilation 2mg/Nitro 400mcg/Hepari 12:31:33 Versed I.V. 1 mg Gerry Bradleyie for sedation Jyoti Wright RN 12:31:40 Fentanyl I.V. 50 mcg Gerry Banerjee for sedation Jyoti Wright RN 12:35:50 Heparin Bolus I.V. 4000 Gerrykriss Bradleyie for cari ified units Jyoti Wright RN anticoagulation with dr montes 12:38:52 Versed I.V. 1 mg Gerry Banerjee for sedation Jyoti Wright RN 12:38:56 Fentanyl I.V. 50 mcg Gerry Banerjee for sedation Jyoti Wright RN Procedure Log Time Note 12:00:25 Abraham Basurto RN sent for patient. Start room use. 12:03:01 Signed procedure consent form obtained from patient. 12:03:03 Diagnostic Cath status Elective 12:03:04 Time tracking: Regular hours (M-F 7:00 - 5:00) 12:03:07 Plan of Care:Hemodynamics will remain stable., Cardiac rhythm will remain stable., Comfort level will be maintained., Respiratory function will remain adequate., Patient/ family verbilizes understanding of procedure., Procedure tolerated without complication., Recovers from procedure without complications.. 12:04:08 Patient allergic to Other allergyPCN, CODEINE, IV CONTRAST DYE 12:08:45 Lab Result : Hemoglobin 12.7 g/dl 12:08:45 Lab Result : Hematocrit 37 % 12::45 Lab Result : BUN 17 mg/dl 12::45 Lab Result : Creatinine 1.1 mg/dl 12:11:36 Patient received from Med II to CCL 2 Alert and oriented. Tansferred to table in Supine position. 12:11:37 Correct patient and procedure confirmed by team. 12:11:37 Warm blankets applied, and tracy hugger turned on for patient comfort. 12:20:10 ECG and BP/O2 sat monitors applied to patient. 12:20:11 Baseline sample Acquired. 12:20:15 Rhythm: sinus rhythm 12:20:16 Full Disclosure recording started 12:22:01 H&P Date Dictated: 07/29/2018 Within 30 days and on chart., H&P Addendum completed by physician on day of procedure. (MUST COMPLETE FOR ALL OUTPATIENTS). 12:22:02 Pre-op teaching completed and patient verbalized understanding. 12:22:02 Pre-procedure instructions explained to patient. 12:22:04 Family in patients room. 12:22:05 Patient NPO since Midnight. 12:22:06 Is the patient allergic to Iodine/contrast media? Yes. 12:22:17 Was the patient premedicated? Yes 12:22:21 Is patient on blood thinner?Yes 12:22:25 ACC The patient was administered the following blood thiners within the last 24 hours: ACCPlavix 12:22:44 Patient diabetic? Yes. 12:22:45 If diabetic: On Metformin? No 12:22:48 Previous problem with sedation/anesthesia? No ? 12:22:50 Snore? Yes 12:22:51 Sleep apnea? No 12:22:52 Opens mouth fully? Yes 12:22:52 Deviated septum? No 12:22:53 Sticks out tongue? Yes 12:22:57 Airway obstruction? Yes COPD 12:23:00 Dentures? Yes OUT 12:23:04 Pre procedure: right dorsailis pedis pulse 1+ Palpable, but thready & weak; easily obliterated 12:23:07 Modified Ernesto's test Ulnar < 7 seconds 12:23:08 Patient pain scale 0/10 ?. 12:23:15 IV left hand D/C'd due to infiltration. 12:23:33 IV started by Chriss Wright RN inleft forearm with a 22 gauge IV catheter with 0.9% NaCl at KVO. 12:23:35 Lab results completed and on chart. 12:23:38 Right Radial & Right Groin area was prepped with chlora-prep and draped in sterile fashion 12:23:39 Alarms reviewed by R. N. 12:23:40 Sharps counted by scrub and verified by R.N. 12:24:06 Use device set Radial Dx or PCI 12:24:08 Tegaderm 4 x 4 (1626W) opened to sterile field. 12:24:10 ACIST Hand Control (61125) opened to sterile field. 12:24:10 ACIST Manifold (90862) opened to sterile field. 12:24:12 Bag Decanter (2002S) opened to sterile field. 12:24:12 Medline Cath Pack ([id number]) opened to sterile field. 12:24:12 ACIST Syringe (49047) opened to sterile field. 12:24:13 MBrace Wrist Support ([id number]) opened to sterile field. 12:24:13 DIAGNOSTIC WIRE .035 260cm J wire (325898) opened to sterile field. 12:24:15 SHEATH 6FR Slender (88-8859) opened to sterile field. 12:25:09 Lidocaine 2% 20ml vial added to field was administered by Gerry Montes MD; for local anesthetic; 12:25:11 0.9% NaCl 100 ml/hr I.V. was administered by Chriss Wright RN; Per physician; 12:25:14 Heparin Flush Bag (1000units/500ml NS) 2 bags added to field was administered by Gerry Montes MD; used for procedure; 12:25:50 Oxygen 2 l/min etCO2 Nasal cannula was administered by Chriss Wright RN; used for procedure; 12:26:13 Vital chart was started 12:26:17 Final Timeout: patient, procedure, and site verified with staff and physician. All members of the team are in agreement. 12:: --------ALL STOP TIME OUT------ 12:: Right Radial & Right Groin site verified by team. 12:: Maximum allowable Isovue 300 dose 300ml. Physician notified. (300ml for normal creatinines. For patients with creatinine of 1.7 or higher multiply weight(kg) x 5 divided by creatinine.) 12::33 Fire Safety Assessment: A--An alcohol-based skin anteseptic being used preoperatively., C--Open oxygen or nitrous oxide is being used., D--An ESU, laser, or fiber-optic light is being used. 12::36 Physical assessment completed. ASA score P 2 - A patient with mild systemic disease as per Gerry Montes MD. 12::39 Sedation plan: IV Moderate Sedation Medication:Versed, Fentanyl 12::39 Procedure started. 12::43 Versed 0.5 mg I.V. was administered by Chriss Wright RN; for sedation; verified with dr montes 12::46 Local anesthetic to right radial artery with Lidocaine 2% by Gerry Montes MD.INITIAL ACCESS ONLY 12::48 Fentanyl 25 mcg I.V. was administered by Chriss Wright RN; for sedation; verified with dr montes 12:29:28 Patient Weight : 222.67 lbs 12:30:32 A 6 Fr Short sheath was inserted into the Right Radial artery 12:: IV CATHETER 22g opened to sterile field. 12:: A DIAGNOSTIC [place] 110cm 5 Fr catheter ([id number]) was advanced over the wire and used for Procedure. 12:: Radial Cocktail (Verapomil 2mg/Nitro 400mcg/Heparin 1500units) 1 syringe I.A. was administered by Gerry Montes MD; for vasodilation; :33 Versed 1 mg I.V. was administered by Chriss Wright RN; for sedation; 12::40 Fentanyl 50 mcg I.V. was administered by Chriss Wright RN; for sedation; 12::48 LV angiography performed. 12::49 LV gram done using RODAS 12::56 EF : 70 % 12:31:59 Injector settings: Ml/sec: 7, Volume: 15, 12:32:22 LCA angiography performed. 12:32:53 RCA angiography performed. 12:33:50 Catheter exchanged over wire. 12:33:58 Use device set JYOTI PCI 12:35:24 INFLATOR Merit Daniel (FZ4434) opened to sterile field. 12:35:32 CHOICE PT Extra Support 182cm wire ([id number]) opened to sterile field. 12:35:50 Heparin Bolus 4000 units I.V. was administered by Chriss Wright RN; for anticoagulation; verified with dr montes 12:35:57 GUIDE 6FR EBU 3.5 catheter ([id number]) opened to sterile field. 12:36:13 6 Fr EBU 3.5 guide catheter was inserted over the wire 12:36:19 CPTXS wire advanced. 12:36:42 Wire advanced across lesion. 12:37:40 Place stent Inflation Number: 1 A CHANTAL RX 2.25 x 15 stent ([id number]) was prepped and advanced across the Mid CX. The stent was deployed at 15 DANIAL for 0:10 (min:sec). 12:38:35 GUIDE 6FR AR 2.0 catheter ([id number]) opened to sterile field. 12:38:40 Stent catheter was removed intact over wire. 12:38:41 Guide catheter removed. 12:38:41 Wire removed. 12:38:48 6 Fr AR 2 guide catheter was inserted over the wire 12:38:52 Versed 1 mg I.V. was administered by Chriss Wright RN; for sedation; 12:38:56 Fentanyl 50 mcg I.V. was administered by Chriss rWight RN; for sedation; 12:40:29 CPTXS wire advanced. 12:40:57 Wire advanced across lesion. 12:41:32 Inflation number: 1 The stent balloon was then re-inflated across the Dist RCA to 9 DANIAL for 0:10 (min:sec). 12:41:48 Inflation number: 2 The stent balloon was then re-inflated across the Dist RCA to 11 DANIAL for 0:10 (min:sec). 12:42:29 Stent catheter was removed intact over wire. 12:43:39 Place stent Inflation Number: 3 A CHANTAL RX 2.25 x 15 stent ([id number]) was prepped and advanced across the Dist RCA. The stent was deployed at 15 DANIAL for 0:10 (min:sec). 12:44:16 Stent catheter was removed intact over wire. 12:45:26 Inflate balloon Inflation number: 4 A EUPHORA 2.0 x 12 Balloon ([id number]) was prepped and advanced across the Dist RCA, then inflated to 13 DANIAL for 0:10 (min:sec). 12:46:08 Balloon removed over the wire. 12:46:09 Guide catheter removed. 12:46:09 Wire removed. 12:46:11 TR BAND Standard ([id number]) opened to sterile field. 12:46:39 Sheath removed intact; hemostasis achieved with Mechanical Compression to the Right Radial artery. 12:46:42 Procedure ended.(Physican Out) 12:47:07 Fluoroscopy time 06.40 minutes. 12:47:21 Fluoroscopy dose: 1341 mGy 12:47:21 Flurop Dose total: 1341 12:47:32 Contrast amount:Isovue 300 114ml. 12:47:34 Sharps counted by scrub and verified by R.N. 12:47:38 Insertion/operative site no bleeding no hematoma. 12:47:42 TR band inflated with 12cc of air. 12:47:43 Post Procedure Pulses reassessed and unchanged 12:47:45 Post-procedure physical assessment completed. ASA score P 2 - A patient with mild systemic disease as per Gerry Montes MD. 12:47:48 Post procedure rhythm: unchanged. 12:47:51 Estimated blood loss: 10 ml 12:47:52 Post procedure instruction explained to patient.Patient verbalizes understanding. 12:47:53 Patient needs reinforcement of post procedure teaching. 12:48:00 Procedure type changed to Cath procedure, Diagnostic procedure, LHC, LHC w/Coronaries, PCI procedure, Coronary Stent, Coronary Stent Initial x2 12:48:02 Procedure and supply charges have been captured, reviewed, submitted and are correct. 12:48:04 Procedure Complication : No complications 12:52:15 Vital chart was stopped 12:52:16 See physician's report for complete and final results. 12:52:26 Report given to PCU. 12:52:44 Patient transfered to PCU with Bed. 12:52:46 Full Disclosure recording stopped 12:52:46 Procedure ended. 12:52:50 End room use (Document Last) Intervention Summary Intervention Notes Time ActionType Lesion and Equipment Used Action# Pressure Duration Attributes 12:37:40 Place stent Mid CX CHANTAL RX 2.25 x 1 15 00:10 15 stent ([id number]) 12:41:32 Reinflate Dist RCA CHANTAL RX 2.25 x 1 9 00:10 stent 15 stent balloon ([id number]) 12:41:48 Reinflate Dist RCA CHANTAL RX 2.25 x 2 11 00:10 stent 15 stent balloon ([id number]) 12:43:39 Place stent Dist RCA CHANTAL RX 2.25 x 3 15 00:10 15 stent ([id number]) 12:45:26 Inflate Dist RCA EUPHORA 2.0 x 4 13 00:10 balloon 12 Balloon ([id number]) Device Usage Item Name Manufacture Quantity Catalog Number Hospital Part Current M inimal Lot# / Charge Number Stock Stock Serial# Code Tegaderm 4 x 4 3M 1 1626W [id number] 772565 307164 5 (1626W) ACIST Manifold Acist 1 15672 675700 311091 228330 5 (86911) Medical Systems Inc ACIST Hand Acist 1 96276 694772 086055 548068 5 Control Medical (92192) Systems Inc ACIST Syringe Acist 1 08403 724854 503366 287836 2 0 (20709) Medical Systems Inc Medline Cath Medline 1 [id number] 941124 74886 854075 5 Pack ([id number]) Bag Decanter Microtek 1 2001S 649045 64821 334262 5 (2001S) Medical Inc. DIAGNOSTIC [facility] [place] 1 974407 781320 651043 342853 3 0 WIRE .035 260cm J wire (685096) MBrace Wrist Advanced 1 140-0250-00 393609 10743 956557 5 Support Vascular ([id number]) Dynamics SHEATH 6FR Terumo 1 [id number] 702236 591030 085834 5 Slender (801060) IV CATHETER B. Domínguez 1 1582633-23 671593 292297 890087 5 22g DIAGNOSTIC Terumo 1 40-4565 825946 441541 363374 5 [place] 110cm 5 Fr catheter (433070) INFLATOR Merit Merit 1 RZ3599 416901 853239 650741 1 5 [facility] (BK4445) CHOICE PT [place] 1 [id number] 392105 441008 261560 5 Extra Support Scientific 182cm wire ([id number]) GUIDE 6FR EBU Medtronic 1 KF9SWA54 561133 72893 690922 3 3.5 catheter (SL9SQE99) CHANTAL RX 2.25 x Medtronic 2 [id number] 157694 0626976 054082 5 [id number] 15 stent [id number] ([id number]) GUIDE 6FR AR Medtronic 1 XR5MA13 319998 45565 727484 1 2.0 catheter (EP4LH62) EUPHORA 2.0 x Medtronic 1 [id number] 267372 414399 858275 5 [id number] 12 Balloon ([id number]) TR BAND Terumo 1 [id number]-[id number] 008759 429666 962304 4 0 Standard (CLZ69ILZ) Signature Audit [place] Stage Time Signature Unsigned Intra-Procedure 07/30/2018 Memo Velasquez RT(R) 12:54:27 PM RT(R) 07/30/2018 12:56:06 PM Intra-Procedure 07/30/2018 Memo Velasquez 12:57:12 PM RT(R) Signatures Monitor : Memo Velasquez RT Signature : Date : Time : [facility] [address] [address]
[~2018-07-29 17:49] MED LIST changes: +INSULIN; +LIPITOR20 MG PO
[2018-07-29 18:30] LABS: BASOPHILS 0.2 % (0-2); EOSINOPHILS 2.3 % (0-7); HEMATOCRIT 42.8 % (36.0-48.0); HEMOGLOBIN 14.8 g/dL (12-16); IMMATURE GRANULOCYTES 0.3 % (0-5); LYMPHOCYTES 21.8 % (15-50); MCH 29.8 pg (26.0-34.0); MCHC 34.6 g/dL (31.0-37.0); MCV 86.1 fL (80.0-100.0); MEAN PLATELET VOLUME 10.5 fL (7.4-10.4); MONOCYTES 6.4 % (2-11); RBC 4.97 10x6/uL (4.00-5.40); RDW 13.1 % (11.5-14.5); WBC 9.9 10x3/uL (4.8-10.8)
[2018-07-29 18:45] LABS: ALBUMIN 3.1 g/dL (3.4-5.0); ALKALINE PHOSPHATASE 84 U/L (46-116); ALT (SGPT) 25 U/L (10-68); BILIRUBIN - TOTAL 0.37 mg/dL (0.2-1.3); CALC OSMOLALITY 286 mosm/kg (275-300); CALCIUM 8.8 mg/dL (8.5-10.1); CHLORIDE - SERUM 100 mmol/L (98-107); CREATININE - SERUM 1.3 mg/dL (0.6-1.3); POTASSIUM - SERUM 4.4 mmol/L (3.5-5.1); PROTEIN - SERUM 7.7 g/dL (6.4-8.2); SODIUM 138 mmol/L (136-145); UREA NITROGEN 15 mg/dL (7-18); eGFR NON AFRICAN AMERICAN 43 mL/min (90-120)
[2018-07-29 18:46] LABS: PLATELET COUNT 225 10x3/uL (130-400)
[2018-07-29 18:49] LABS: GLUCOSE 270 mg/dL (74-106)
[2018-07-29 18:55] LABS: CKMB 0.4 U/L (0.0-3.6); CREATINE KINASE 41 UL (21-215)
[2018-07-29 18:59] LABS: TROPONIN-I < 0.017 ng/mL (0.000-0.060)
--- NOTE | 2018-07-29 19:31 | NUR ---
PT HAD ASA DATABASE MODELER.
--- NOTE | 2018-07-29 21:00 | NUR ---
PATIENT ARRIVED FROM ER VIA WHEELCHAIR. PATIENT IS ALERT AND ORIENTED. RESPIRATIONS ARE EVEN AND UNLABORED. NO S/S OF DISTRESS. NO C/O PAIN. CALL LIGHT WITHIN REACH. WILL CPOC.
[2018-07-29] MEDS ORDERED: MAG-OX 400 MG400 MG PO (23:04)
[2018-07-29] MEDS ORDERED: VITAMIN D3400 UNI1 PO (23:05)
[2018-07-29] MEDS ORDERED: NYAMYC60 GM TP (23:06)
[2018-07-30 00:16] VITALS: BP 155/78; BMI 37.1
[2018-07-30 01:54] VITALS: BP 155/78
[2018-07-30 05:13] VITALS: BP 163/67
[2018-07-30 05:30] LABS: BASOPHILS 0.3 % (0-2); EOSINOPHILS 2.8 % (0-7); HEMOGLOBIN 12.7 g/dL (12-16); IMMATURE GRANULOCYTES 0.1 % (0-5); LYMPHOCYTES 32.8 % (15-50); MCH 29.6 pg (26.0-34.0); MCHC 34.3 g/dL (31.0-37.0); MCV 86.2 fL (80.0-100.0); MEAN PLATELET VOLUME 10.4 fL (7.4-10.4); MONOCYTES 7.5 % (2-11); NEUTROPHILS 56.5 % (40-80); PLATELET COUNT 192 10x3/uL (130-400); RBC 4.29 10x6/uL (4.00-5.40); RDW 13.2 % (11.5-14.5); WBC 7.6 10x3/uL (4.8-10.8)
[2018-07-30 06:04] LABS: CALCIUM 8.3 mg/dL (8.5-10.1); CARBON DIOXIDE 29.2 mmol/L (21.0-32.0); CHLORIDE - SERUM 101 mmol/L (98-107); CKMB 0.4 U/L (0.0-3.6); CREATINE KINASE 24 UL (21-215); CREATININE - SERUM 1.1 mg/dL (0.6-1.3); MAGNESIUM - SERUM 1.3 mg/dL (1.8-2.4); SODIUM 138 mmol/L (136-145); UREA NITROGEN 17 mg/dL (7-18); eGFR NON AFRICAN AMERICAN 53 mL/min (90-120)
[2018-07-30 06:14] LABS: CALC OSMOLALITY 283 mosm/kg (275-300); GLUCOSE 200 mg/dL (74-106); POTASSIUM - SERUM 3.7 mmol/L (3.5-5.1); TROPONIN-I < 0.017 ng/mL (0.000-0.060)
[2018-07-30 08:18] VITALS: BP 138/76
[2018-07-30 08:42] VITALS: Ht 165.1 cm; Wt 101.4 kg
[2018-07-30 11:13] VITALS: BP 139/76
--- NOTE | 2018-07-30 11:16 | NUR ---
IV RESTARTED TO LEFT HAND WITH 22 GAUGE CATH BY NS. PRE-OPS GIVEN.
--- NOTE | 2018-07-30 12:08 | NUR ---
LEAVING FOR DEFENSIVE SECONDARY COACH BY BED.
--- NOTE | 2018-07-30 13:13 | NUR ---
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 VS WNL. RIGHT WRIST STABLE WITHOUT BLEEDING OR HEMATOMA NOTED.
[2018-07-30 15:24] VITALS: BP 175/81
--- NOTE | 2018-07-30 17:03 | NUR ---
TR BAND DCD WITHOUT BLEEDING OR HEMATOMA NOTED. WILL MONITOR.
--- NOTE | 2018-07-30 17:53 | NUR ---
IV AND TELEMETRY DCD. DC PLANS GIVEN. UNDERSTANDING VOICED. ESCORTED TO CAR BY W/C.
--- NOTE | 2018-07-31 07:55 | MORECARE ---
CASE MANAGEMENT DISCHARGE SUMMARY PATIENT: VEENA WILKINS UNIT: [id number] ADM DATE: 07/29/18 AGE: 63 : [birth year] SEX: F ROOM/BED: D.2117 AUTHOR: KRISTIE ANTHONY PHYSICIAN: REFERRING PHYSICIAN: RODNEY COLBERT MD DATE OF SERVICE: 07/31/18 Discharge Plan Patient Name: VEENA WILKINS Facility: [facility]:[place] : 1955 Planned Disposition: Home Anticipated Discharge Date: 07/30/18 Discharge Date: 07/30/2018 Expected LOS: 1 Initial Reviewer: [email or web address] Initial Review Date: 07/31/2018 Generated: 07/31/18 8:55 am Patient Name: VEENA WILKINS Page [id number] at 0755 All edits/amendments must be made on the electronic document DICTATION DATE: 07/31/18 0754 PACKING AND WRAPPING SUPERVISOR: CLEMENTE 07/31/18 0754 RPT#: [id number] DC DATE:07/30/18 STATUS: DIS IN [facility] [address] [place] [address] END OF REPORT
--- NOTE | 2018-08-01 14:57 | DS ---
PATIENT:VEENA WILKINS :[birth year] MEDICAL RECORD: [id number] DISCHARGE SUMMARY ADMISSION DATE: 07/29/18 DISCHARGE DATE: 07/30/18 DATE OF SERVICE: 07/30/2018 DIAGNOSES: 1. Unstable angina. 2. Percutaneous transluminal coronary angioplasty stent of left circumflex and right coronary artery this admission. 3. Hypertension. 4. Hyperlipidemia. HOSPITAL COURSE: Mrs. Wilkins presents with anginal symptomatology. She was found to have 2-vessel disease of the RCA and left circumflex, underwent successful PTCA stent of both territories, was discharged home to continue her aspirin and Plavix. We will follow up with [facility] in 1 month. TRANSINT:[id number] Voice Confirmation ID: [id number] DOCUMENT ID: [id number] RODNEY COLBERT MD at 1457 CC: [id number] DICTATION DATE: 07/30/18 1249 INSOLE TACKER: 07/31/18 0047 DIS IN 07/30/18 [place] [id number] [place] [address]
--- NOTE | 2018-08-01 14:57 | OP ---
PATIENT NAME: VEENA WILKINS MEDICAL RECORD: [id number] :51 LOCATION:D.M2 D.2117 ADMISSION DATE:07/29/18 SURGEON: RODNEY COLBERT MD DATE OF OPERATION: 07/30/2018 DATE OF SERVICE: 07/30/2018 PROCEDURES: 1. PTCA stent of left circumflex. 2. PTCA stent of RCA and PDA. 3. PTCA of RCA and PLV. 4. Left heart catheterization. 5. Selective coronary angiography. 6. Left ventriculogram. INDICATION: Angina and coronary artery disease. PROCEDURE IN DETAIL: After informed consent was obtained and after a detailed description of risks, benefits as well as alternative therapies, the patient elected to proceed with angiogram and angioplasty. The right radial area was prepped and draped in normal sterile fashion. Right radial artery was cannulated via modified Seldinger technique with placement of 6-Polish sheath. All catheters exchanged through this sheath. FINDINGS: Left ventriculogram was performed in a standard 30-degree RODAS view, reveals good cardiac wall motion throughout all segments. Overall ejection fraction estimated at 70%. SELECTIVE CORONARY ANGIOGRAPHY: 1. Left main is with no significant angiographic disease. 2. Left anterior descending has previously placed stents, these are widely patent with no significant restenosis. No disease elsewhere throughout the LAD or its branches. 3. The left circumflex has previously placed stents, these are widely patent; however, there is 90% stenosis after the previously placed stent. 4. The right coronary has previously placed stents, these are widely patent; however, the PDA has 90% stenosis at the ostium. PTCA STENT OF THE LEFT CIRCUMFLEX: The stent used was a 2.25 x 15 mm [place]. Result was 0% residual stenosis. PTCA STENT OF THE RCA AND PDA: The stent used was a 2.25 x 15 mm [place]. This caused plaque shift into the PLV, it was ballooned with a 2.0 balloon. Result was 0% residual. IMPRESSION: Successful percutaneous transluminal coronary angioplasty stent of the left circumflex and right coronary, both going from 90% initial stenosis to 0% residual. TRANSINT:[id number] Voice Confirmation ID: [id number] DOCUMENT ID: [id number] OPERATIVE REPORT [id number] VEENA WILKINS RODNEY COLBERT MD at 1457 CC: [id number] DICTATION DATE: 07/30/18 1251 HAND CLOTH CUTTER: 07/30/18 1352 DIS IN 07/30/18 [facility] [address] [place] [address]
== END 2018-07-30 17:54 | disposition home or self-care (01) ==
LOC: D.ER 17:49 → D.M2 20:21 → OBSVTIME 20:22 → D.M2 07-30 17:54
PROVIDERS: Family Medicine; ADMIT Internal Medicine Interventional Cardiology; ATTEND Internal Medicine Interventional Cardiology
DX: I25.110 Atherosclerotic heart disease of native coronary artery with unstable angina pectoris (principal); I10 Essential (primary) hypertension; E78.5 Hyperlipidemia, unspecified

== ENCOUNTER 2020-11-06 16:48 | Inpatient (IN) | payer MEDICARE, OTHER ==
[2020-11-06] VITALS (7 sets, daily range): BP systolic 142–176; BP diastolic 90–108; BMI 40.6
[~2020-11-06] VITALS: Ht 165.1 cm; Wt 110.0 kg
--- NOTE | ~2020-11-06 | HEMODYNAMI ---
PATIENT:VEENA WILKINS MEDICAL RECORD: [id number] : 51 LOCATION:[facility]# [id number] ADMISSION DATE: 11/06/20 Generatedon:119:02 Patient name: VEENA WILKINS Patient #: [id number] SSN: : 1955 Date of study: 11/06/2020 Page: Of Hemodynamic Procedure Report Patient Data Patient Demographics Procedure consent was obtained First Name: VEENA Gender: Female Last Name: CLAUDETTE : 1955 Middle Initial: NASIM Age: 65 year(s) Patient #: [id number] Race: Unknown Additional ID: [id number] Contact details [address]: [address] [place] [address] State: [place] City: [place] Zip code: [address] Past Medical History Allergies Allergen Reaction Date Comments Reported Other allergy 11/13/2017 IV DYE, COEINE, PCN Other allergy 01/30/2018 IV CONTRAST DYE, PCN, CODEINE Other allergy 07/30/2018 PCN, CODEINE, IV CONTRAST DYE Iodine 11/06/2020 premedicated Admission Admission Data Admission Date: 11/06/2020 Admission Time: 16:48 Weight (lbs.): 231.49 Weight (kg.): 105 Procedure Procedure Types Cath Procedure Diagnostic Procedure [facility] w/Coronaries Sedation Charges Moderate Sedation 25-39 minutes PCI Procedure Hemochron ACT Test AMI/SVG/CHIEF PILOT PTCA or Stent PTCA PTCA Initial Procedure Description Procedure Date Procedure Date: 11/06/2020 Procedure Start Time: 18:10 Procedure End Time: 18:52 Procedure Staff Name Function Dean Kaiser MD Performing Physician Cruz Ortez RT Monitor Anila Godinez RT Scrub Chriss Wright RN Nurse Fred Holley RN Nurse Procedure Data Cath Procedure Fluoroscopy Diagnostic fluoroscopy Total fluoroscopy Time: 8.1 time: 8.1 min min Diagnostic fluoroscopy Total fluoroscopy dose: 965 dose: 965 mGy mGy Contrast Material Contrast Material Type Amount (ml) Isovue 300 85 Entry Location Entry Primary Successful Side Size Upsize Upsize Entry Closure Succes sful Closure Location (Fr) 1 (Fr) 2 (Fr) Remarks Device Remarks Femoral Right 6 Fr Exoseal artery Short Estimated blood loss: 5 ml Diagnostic catheters Device Type Used For End Catheter Placement MULTIPACK JL 4.0 5Fr Left Coronary catheter Angiography MULTIPACK 3DRC 5Fr Right Coronary catheter Angiography MULTIPACK Pigtail 5 Fr LV Angiography catheter Procedure Complications No complications Procedure Medications Medication Administration Route Dosage 0.9% NaCl I.V. 100 ml/hr Oxygen etCO2 Nasal cannula 2 l/min Heparin Flush Bag added to field 2 bags (1000units/500ml NS) Lidocaine 2% added to field 20 Benadryl I.V. 50 mg Solumedrol I.V. 125 mg Versed I.V. 1 mg Fentanyl I.V. 50 mcg Versed I.V. 1 mg Fentanyl I.V. 50 mcg Heparin Bolus I.V. 18966 units Versed I.V. 1 mg Fentanyl I.V. 50 mcg Integrilin (Bolus I.V. 9.5 ml 2mg/ml) Integrilin Drip I.V. drip 8.4 ml/hr (75mg/100ml) Versed I.V. 1 mg Fentanyl I.V. 50 mcg Lopressor I.V. 5 mg Hemodynamics Rest Heart Rate: 98 (bpm) Pressure Samples Time Site Value (mmHg) Purpose Heart Use Rate(bpm) 18:39 LV 186/16,29 EDP 98 18:39 AO 201/101(143) Pullback 92 18:39 LV 191/19,25 Pullback 92 Gradients Valve Time Site 1 Site 2 Mean SEP/DFP Peak To Heart Use (mmHg) (sec/min) Peak Rate (mmHg) (bpm) Aortic 18:39 LV AO 0 7 0 92 191/19,25 201/101(143) Calculations Valve P-P Mean Valve Index Valve Source Name Gradient Area Flow (cm2) Aortic 0 0 0 0 Snapshots Pre Cath Intra NCS Post Cath Vital Signs Time Heart Resp SPO2 etCO2 NIBP (mmHg) Rhythm Pain Sedation Rate (ipm) (%) (mmHg) Status Level (bpm) 18:09:01 105 17 98 0 142/118(137) NSR 0 (11) 10(A) , No pain 18:14:10 96 12 98 0 213/114(168) NSR 0 (11) 10(A) , No pain 18:18:40 96 15 99 0 215/117(162) NSR 0 (11) 10(A) , No pain 18:23:07 101 15 99 0 204/103(151) NSR 0 (11) 10(A) , No pain 18:27:29 98 12 98 0 181/108(144) NSR 0 (11) 10(A) , No pain 18:31:51 100 12 98 0 196/103(160) NSR 0 (11) 10(A) , No pain 18:36:18 98 13 99 0 196/107(146) NSR 0 (11) 10(A) , No pain 18:40:46 98 13 99 0 210/125(171) NSR 0 (11) 10(A) , No pain 18:45:18 99 23 98 0 223/97(157) NSR 0 (11) 10(A) , No pain 18:50:54 83 13 95 0 179/101(138) NSR 0 (11) 10(A) , No pain 18:58:18 79 11 98 0 196/115(146) NSR 0 (11) 10(A) , No pain Medications Time Medication Route Dose Verified Delivered Reason Notes Effectiveness by by 18:08:43 0.9% NaCl I.V. 100 Dean Fred used for ml/hr Job Holley speech and language assistant 18:08:54 Oxygen etCO2 2 Dean Fred used for Nasal l/min Job Holley speech and language assistant cannula 18:09:03 Heparin Flush added 2 Dean Dean used for Bag to bags Job Kaiser MD procedure (1000units/500ml field NS) 18:09:13 Lidocaine 2% added 20ml Dean Dean for local to vial Job Kaiser MD anesthetic field 18:09:27 Benadryl I.V. 50 mg Dean Fred used for Job Holley speech and language assistant 18:09:36 Solumedrol I.V. 125 Dean Fred used for mg Job Holley speech and language assistant 18:09:48 Versed I.V. 1 mg Dean Fred for sedation Job Holley RN 18:09:54 Fentanyl I.V. 50 Dean Fred for sedation mcg Job Holley RN 18:12:40 Versed I.V. 1 mg Dean Fred for sedation Job Holley RN 18:12:42 Fentanyl I.V. 50 Dean Fred for sedation mcg Job Holley RN 18:16:56 Heparin Bolus I.V. 00122 Dean Fred for VERIF IED units Job Holley RN anticoagulation PER KAREN MCBRIDE 18:22:40 Versed I.V. 1 mg Dean Fred for sedation Job Holley RN 18:22:44 Fentanyl I.V. 50 Dean Fred for sedation mcg Job Holley RN 18:42:56 Integrilin I.V. 9.5 Dean Fred for 0.5ML (Bolus 2mg/ml) ml Job Holley RN antiplatelet WASTE therapy 18:47:04 Integrilin Drip I.V. 8.4 Dean Fred for TO RU N (75mg/100ml) drip ml/hr Job Holley RN antiplatelet VIA PUMP therapy FOR 12 HRS 18:47:10 Versed I.V. 1 mg Dean Fred for sedation Job Holley RN 18:47:13 Fentanyl I.V. 50 Dean Fred for sedation mcg Job Holley RN 18:47:23 Lopressor I.V. 5 mg Dean Fred for Job Holley RN hypertension Procedure Log Time Note 17:48:22 Informed consent obtained and on chart 17:48:43 Chrsis Wright RN sent for patient. Start room use. 17:48:45 Procedure Status Emergent Heart Cath (AMI). 17:48:47 Time tracking: Call back (After hours or weekends) 17:48:50 Plan of Care:Hemodynamics will remain stable., Cardiac rhythm will remain stable., Comfort level will be maintained., Respiratory function will remain adequate., Patient/ family verbilizes understanding of procedure., Procedure tolerated without complication.. 17:48:53 H&P Date Dictated: 11/06/2020 ER History on chart.. 17:51:18 Patient Weight : 231.49 lbs 17:59:49 Patient received from ED to CCL 1 Alert and oriented. Tansferred to table in Supine position. 17:59:50 Warm blankets applied, and tracy hugger turned on for patient comfort. 17:59:50 Correct patient and procedure confirmed by team. 17:59:51 ECG and BP/O2 sat monitors applied to patient. 17:59:54 Pre-procedure instructions explained to patient. 17:59:54 Pre-op teaching completed and patient verbalized understanding. 18:03:46 Family in waiting room. 18:03:48 Patient NPO since Lunch. 18:04:03 Patient allergic to Iodinepremedicated 18:04:06 Is the patient allergic to Iodine/contrast media? Yes. 18:04:07 Was the patient premedicated? Yes 18:04:53 Is patient on blood thinner?Yes 18:04:56 ACC The patient was administered the following blood thiners within the last 24 hours: ACCPlavix 18:05:00 Patient diabetic? Yes. 18:05:02 If diabetic: On Metformin? No 18:05:04 ----Pre-sedation anethsthesia assessment.---- 18:05:05 Previous problem with sedation/anesthesia? No ? 18:05:07 Snore? Yes 18:05:09 Sleep apnea? Yes 18:05:11 Deviated septum? No 18:05:12 Opens mouth fully? Yes 18:05:13 Sticks out tongue? Yes 18:05:18 Airway obstruction? Yes COPD 18:05:22 Dentures? Yes OUT 18:05:27 Pre procedure: right femoral pulse 2+ Normal; easily identifiable; not easily obliterated 18:05:32 Patient pain scale 3/10 ?. 18:05:39 IV patent on arrival in left antecubital with 0.9% NaCl at KVO. 18:05:48 IV patent on arrival in Right upper arm with 0.9% NaCl at 100ml/hr. 18:06:15 NOTHING RUNNING IN RIGHT UPPER ARM IV 18:06:22 Lab results not drawn. 18:06:27 Right groin area was prepped with chlora-prep and draped in sterile fashion 18:06:28 Alarms reviewed by R. N. 18:06:29 Sharps counted by scrub and verified by R.N. 18:06:30 Physician arrived 18:06:31 --------ALL STOP TIME OUT------ 18:06:31 Final Timeout: patient, procedure, and site verified with staff and physician. All members of the team are in agreement. 18:06:34 Right groin site verified by team. 18:06:40 Fire Safety Assessment: A--An alcohol-based skin anteseptic being used preoperatively., C--Open oxygen or nitrous oxide is being used., D--An ESU, laser, or fiber-optic light is being used. 18:06:49 Sedation plan: IV Moderate Sedation Medication:Versed, Fentanyl 18:07:01 LABS NOT DRAWN 18:07:04 Use device set KAISER PCI 18:07:06 TUBING High Pressure Extension Tubing (Kaiser) ([id number]) opened to sterile field. 18:07:07 INFLATOR Merit BasixCompak (RS7759) opened to sterile field. 18:07:28 BMW 300cm [place] 2 J wire ([id number]) opened to sterile field. 18:07:35 SHEATH 6FR Mcgrath (ZLF655) opened to sterile field. 18:07:36 EXOSEAL 6Fr (EX600) opened to sterile field. 18:07:43 Use device set Multipack Set 18:07:45 DIAGNOSTIC Multipack 5Fr catheter set ([id number]) opened to sterile field. 18:07:51 Procedure started. 18:07:51 Full Disclosure recording started 18:08:11 Vital chart was started 18:08:43 0.9% NaCl 100 ml/hr I.V. was administered by Fred Holley RN; used for procedure; Verbal order read back and verified. 18:08:54 Oxygen 2 l/min etCO2 Nasal cannula was administered by Fred Holley RN; used for procedure; Verbal order read back and verified. 18:09:03 Heparin Flush Bag (1000units/500ml NS) 2 bags added to field was administered by Dena Kaiser MD; used for procedure; Verbal order read back and verified. 18:09:13 Lidocaine 2% 20ml vial added to field was administered by Dean Kaiser MD; for local anesthetic; Verbal order read back and verified. 18:09:27 Benadryl 50 mg I.V. was administered by Fred Holley RN; used for procedure; Verbal order read back and verified. 18:09:36 Solumedrol 125 mg I.V. was administered by Fred Holley RN; used for procedure; Verbal order read back and verified. 18:09:48 Versed 1 mg I.V. was administered by Fred Holley RN; for sedation; Verbal order read back and verified. 18:09:54 Fentanyl 50 mcg I.V. was administered by Fred Holley RN; for sedation; Verbal order read back and verified. 18:10:07 Local anesthetic to right femoral artery with Lidocaine 2% by Dean Kaiser MD.INITIAL ACCESS ONLY 18:10:16 A 6 Fr Short sheath was inserted into the Right Femoral artery 18:10:48 Procedure type changed to Cath procedure, Diagnostic procedure, LHC, LHC w/Coronaries, Sedation Charges, Moderate Sedation 25-39 minutes, PCI procedure, Hemochron ACT Test, AMI/SVG/CHIEF PILOT PTCA or Stent, PTCA, PTCA Initial 18:12:26 A MULTIPACK JL 4.0 5Fr catheter was advanced over the wire and used for Left Coronary Angiography. 18:12:30 LCA angiography performed. 18:12:40 Versed 1 mg I.V. was administered by Fred Holley RN; for sedation; Verbal order read back and verified. 18:12:42 Fentanyl 50 mcg I.V. was administered by Fred Holley RN; for sedation; Verbal order read back and verified. 18:13:09 Baseline sample Acquired. 18:13:18 Rhythm: w/ ST elevation 18:15:15 Catheter exchanged over wire. 18:15:25 A MULTIPACK 3DRC 5Fr catheter was advanced over the wire and used for Right Coronary Angiography. 18:15:30 RCA angiography performed. 18:15:49 Catheter exchanged over wire. 18:15:57 GUIDE 6FR XBLAD 3.5 catheter ([id number]) opened to sterile field. 18:16:09 ACC Pre-intervention REJI Flow is 0. 18:16:56 Heparin Bolus 67436 units I.V. was administered by Fred Holley RN; for anticoagulation; VERIFIED PER KAREN MCBRIDE Verbal order read back and verified. 18:18:00 Pre PCI Site: [place] mLAD has 100% stenosis. 18:18:22 6 Fr XBLAD 3.5 guide catheter was inserted over the wire 18:18:38 BMW wire advanced. 18:19:30 Wire removed. 18:19:43 WHISPER wire advanced. 18:22:40 Versed 1 mg I.V. was administered by Fred Holley RN; for sedation; Verbal order read back and verified. 18:22:44 Fentanyl 50 mcg I.V. was administered by Fred Holley RN; for sedation; Verbal order read back and verified. 18:23:48 Inflate balloon Inflation number: 1 A EUPHORA 2.5 x 20 Balloon ([id number]) was prepped and advanced across the Mid LAD 100, then inflated to 7 DANIAL for 0:31 (min:sec) . 18:24:17 Inflation number: 2 The EUPHORA 2.5 x 20 Balloon ([id number]) was reinflated across the Mid LAD , to 9 DANIAL for 0:25 (min:sec) . 18:24:44 Inflation number: 3 The EUPHORA 2.5 x 20 Balloon ([id number]) was reinflated across the Mid LAD , to 11 DANIAL for 0:15 (min:sec) . 18:25:31 Inflation number: 4 The EUPHORA 2.5 x 20 Balloon ([id number]) was reinflated across the Mid LAD , to 8 DANIAL for 0:21 (min:sec) . 18:25:56 Inflation number: 5 The EUPHORA 2.5 x 20 Balloon ([id number]) was reinflated across the Mid LAD , to 9 DANIAL for 0:18 (min:sec) . 18:26:16 Inflation number: 6 The EUPHORA 2.5 x 20 Balloon ([id number]) was reinflated across the Mid LAD , to 10 DANIAL for 0:14 (min:sec) . 18:26:38 Inflation number: 7 The EUPHORA 2.5 x 20 Balloon ([id number]) was reinflated across the Mid LAD , to 11 DANIAL for 0:14 (min:sec) . 18:37:34 Balloon removed over the wire. 18:37:35 Wire removed. 18:37:36 Guide catheter removed. 18:37:45 A MULTIPACK Pigtail 5 Fr catheter was advanced over the wire and used for LV Angiography. 18:38:20 LV angiography performed. 18:38:24 LV gram done using RODAS 18:38:25 LV hemodynamics recorded. 18:38:29 Injector settings: Ml/sec: 10, Volume: 20, 18:38:37 Zero performed for pressure channel P1 18:39:52 Catheter exchanged over wire. 18:42:56 Integrilin (Bolus 2mg/ml) 9.5 ml I.V. was administered by Fred Holley RN; for antiplatelet therapy; 0.5ML WASTE Verbal order read back and verified. 18:43:16 Sheath removed intact; hemostasis achieved with Exoseal to the Right Femoral artery. 18:43:19 Procedure ended.(Physican Out) 18:44:08 Fluoroscopy time 08.10 minutes. 18:44:14 Flurop Dose total: 965 18:44:14 Fluoroscopy dose: 965 mGy 18:44:28 Dose Area Product 43391 mGy/cm. 18:44:42 Contrast amount:Isovue 300 85ml. 18:44:44 Sharps counted by scrub and verified by R.N. 18:44:45 Insertion/operative site no bleeding no hematoma. 18:44:47 Post-op/insertion site Right Femoral artery dressed using a 4 x 4 and Tegaderm. 18:45:09 Post right femoral artery:stable 18:45:41 Post Procedure Pulses reassessed and unchanged 18:46:13 Post procedure: right femoral pulse 2+ Normal; easily identifiable; not easily obliterated. 18:46:24 Post procedure rhythm: sinus rhythm 18:46:27 Estimated blood loss: 5 ml 18:46:44 Post procedure instruction explained to patient.Patient verbalizes understanding. 18:47:04 Integrilin Drip (75mg/100ml) 8.4 ml/hr I.V. drip was administered by Fred Holley RN; for antiplatelet therapy; TO RUN VIA PUMP FOR 12 HRS Verbal order read back and verified. 18:47:10 Versed 1 mg I.V. was administered by Fred Holley RN; for sedation; Verbal order read back and verified. 18:47:13 Fentanyl 50 mcg I.V. was administered by Fred Holley RN; for sedation; Verbal order read back and verified. 18:47:23 Lopressor 5 mg I.V. was administered by Fred Holley RN; for hypertension; Verbal order read back and verified. 18:48:25 ACT drawn and resulted at 323 seconds. (normal therapeutic range 180-240 seconds). 18:48:49 WHISPER 300cm guide wire ([id number]) opened to sterile field. 18:51:30 EMERALD Guide Wire (628-581) opened to sterile field. 18:52:24 Procedure and supply charges have been captured, reviewed, submitted and are correct. 18:52:28 Procedure Complication : No complications 18:52:30 Vital chart was stopped 18:52:35 [facility] Findings: MVD- MD will discuss options w/ pt 18:52:36 Operative report dictated upon procedure completion. 18:52:37 See physician's report for complete and final results. 18:52:41 Report given to ICU. 18:52:45 Patient transfered to ICU with Bed. 18:52:49 Procedure ended. 18:52:49 Full Disclosure recording stopped 18:53:06 End room use (Document Last) Intervention Summary Intervention Notes Time ActionType Lesion and Equipment Action# Pressure Duration Attributes Used 18:23:48 Inflate Mid LAD EUPHORA 1 7 00:31 balloon 2.5 x 20 Balloon ([id number]) 18:24:17 Reinflate Mid LAD EUPHORA 2 9 00:25 balloon 2.5 x 20 Balloon ([id number]) 18:24:44 Reinflate Mid LAD EUPHORA 3 11 00:15 balloon 2.5 x 20 Balloon ([id number]) 18:25:31 Reinflate Mid LAD EUPHORA 4 8 00:21 balloon 2.5 x 20 Balloon ([id number]) 18:25:56 Reinflate Mid LAD EUPHORA 5 9 00:18 balloon 2.5 x 20 Balloon ([id number]) 18:26:16 Reinflate Mid LAD EUPHORA 6 10 00:14 balloon 2.5 x 20 Balloon ([id number]) 18:26:38 Reinflate Mid LAD EUPHORA 7 11 00:14 balloon 2.5 x 20 Balloon ([id number]) Device Usage Item Name Manufacture Quantity Catalog Hospital Part Current Minimal L ot# / Number Charge Number Stock Stock Serial# Code TUBING High Merit 1 [id number] [id number] 10 Pressure Medical Extension Tubing (Kaiser) ([id number]) INFLATOR Merit 1 [id number] 169683 798263 985118 15 Merit Medical BasixCompak (VL6251) BMW 300cm Tran 1 [id number] 323008 744319 788203 5 [place] 2 Vascular J wire ([id number]) SHEATH 6FR Terumo 1 REH510 669673 797744 825345 40 Mcgrath (KIG137) EXOSEAL 6Fr Cardinal 1 EX600 050301 538054 447718 10 (EX600) Health DIAGNOSTIC Cardinal 1 DO9171 038184 60754 724009 30 Multipack Health 5Fr catheter set (CT3655) MULTIPACK Cardinal 1 656662 5 JL 4.0 5Fr Health catheter MULTIPACK Cardinal 1 656621 5 3DRC 5Fr Health catheter GUIDE 6FR Cardinal 1 [id number] 826171 764833 132335 10 XBLAD 3.5 Health catheter ([id number]) EUPHORA 2.5 Medtronic 1 [id number] 252344 833227 512407 5 2 48032254 x 20 Balloon ([id number]) MULTIPACK Cardinal 1 825397 5 Pigtail 5 Health Fr catheter WHISPER Tran 1 [id number] 040075 999655 235457 5 300cm guide Vascular wire ([id number]) [facility] 1 355-767 032535 528849 280319 [address] [facility] (466-722) Signature Audit [place] Stage Time Signature Unsigned Intra-Procedure 11/06/2020 Cruz Ortez RT(R) 6:59:23 PM Intra-Procedure 11/06/2020 Fred Holley RN 7:00:00 PM Intra-Procedure 11/06/2020 Dean Kaiser MD 7:02:17 PM [id number] [place] [address]
[~2020-11-06 16:48] MED LIST changes: +MAG-OX 400 MG400 MG PO; +NYAMYC60 GM TP; +VITAMIN D3400 UNI1 PO
--- NOTE | 2020-11-06 17:10 | NUR ---
[facility] # [id number]
--- NOTE | 2020-11-06 17:25 | NUR ---
DR STATON AT BS. ORDERED TO HOLD NITRO AND HEPARIN. WILL GO TO OPTHALMIC TECH AND SEE IF STENTS ARE OPEN
[2020-11-06 18:04] LABS: CALC OSMOLALITY 285 mosm/kg (275-300); CALCIUM 8.8 mg/dL (8.5-10.1); CHLORIDE - SERUM 101 mmol/L (98-107); CREATININE - SERUM 1.2 mg/dL (0.6-1.3); GLUCOSE 281 mg/dL (74-106); POTASSIUM - SERUM 3.6 mmol/L (3.5-5.1); SODIUM 137 mmol/L (136-145); UREA NITROGEN 19 mg/dL (7-18); eGFR NON AFRICAN AMERICAN 47 mL/min (90-120)
[2020-11-06 18:30] LABS: BASOPHILS 0.2 % (0-2); EOSINOPHILS 0.2 % (0-7); HEMATOCRIT 34.9 % (36.0-48.0); HEMOGLOBIN 11.6 g/dL (12-16); LYMPHOCYTES 14.4 % (15-50); MCH 28.5 pg (26.0-34.0); MCHC 33.4 g/dL (31.0-37.0); MCV 85.5 fL (80.0-100.0); MEAN PLATELET VOLUME 8.3 fL (7.4-10.4); MONOCYTES 10.7 % (2-11); NEUTROPHILS 74.5 % (40-80); RBC 4.08 10x6/uL (4.00-5.40); RDW 13.4 % (11.5-14.5)
[2020-11-06 18:31] LABS: PLATELET COUNT 260 10x3/uL (130-400)
[2020-11-06 18:35] LABS: ALBUMIN 2.6 g/dL (3.4-5.0); ALKALINE PHOSPHATASE 57 U/L (30-120); ALT (SGPT) 38 U/L (10-68); BILIRUBIN - TOTAL 0.48 mg/dL (0.2-1.3); CREATINE KINASE 728 UL (21-215); MAGNESIUM - SERUM 1.7 mg/dL (1.8-2.4); PROTEIN - SERUM 6.9 g/dL (6.4-8.2)
[2020-11-06 18:37] LABS: PLT FUNCT.(P2Y12) PLAVIX 205 PRU (194-418)
[2020-11-07] VITALS (11 sets, daily range): BP systolic 138–160; BP diastolic 69–93; Ht 165.1 cm; Wt 110.0 kg
[2020-11-07 04:43] LABS: BASOPHILS 0.1 % (0-2); EOSINOPHILS 0 % (0-7); HEMATOCRIT 33.6 % (36.0-48.0); HEMOGLOBIN 11.3 g/dL (12-16); LYMPHOCYTES 10.9 % (15-50); MCHC 33.8 g/dL (31.0-37.0); MCV 85.8 fL (80.0-100.0); MEAN PLATELET VOLUME 8.5 fL (7.4-10.4); MONOCYTES 2.3 % (2-11); NEUTROPHILS 86.7 % (40-80); PLATELET COUNT 241 10x3/uL (130-400); RBC 3.92 10x6/uL (4.00-5.40); RDW 13.4 % (11.5-14.5)
[2020-11-07 04:48] LABS: WBC 5.7 10x3/uL (4.8-10.8)
[2020-11-07 05:01] LABS: ALBUMIN 2.2 g/dL (3.4-5.0); BILIRUBIN - TOTAL 0.39 mg/dL (0.2-1.3); CALCIUM 8.5 mg/dL (8.5-10.1); CARBON DIOXIDE 28.1 mmol/L (21.0-32.0); PROTEIN - SERUM 6.2 g/dL (6.4-8.2)
[2020-11-07 05:18] LABS: ANION GAP 10.4 mmol/L (8-16); POTASSIUM - SERUM 4.5 mmol/L (3.5-5.1)
--- NOTE | 2020-11-07 06:44 | NUR ---
2017- DR STATON PAGED AND RETURNED CALL REPORTED SBP 180'S, RECEIVED ORDERS TO START HOME NORVASC.
--- NOTE | 2020-11-07 10:04 | NUR ---
REPORT GIVEN TO KAREN MALONE.
--- NOTE | 2020-11-07 10:35 | NUR ---
RECEIVED PT TO ROOM 2113, VIA BED, PT A/O X4, RESP EVEN AND NONLABORED ON 2L NC. LT AC AND RT SHOULDER IVS SL. MARILEE HOOKED TO SUCTION. ORIENTED PT TO ROOM AND CALL LIGHT, WILL CONTINUE PLAN OF CARE.
--- NOTE | 2020-11-07 11:39 | NUR ---
BLOOD SUGAR OF 295, 10UNITS GIVEN PER S/S. PT DENIES ANY NEEDS AT THIS TIME. CALL LIGHT IN REACH.
--- NOTE | 2020-11-07 12:57 | NUR ---
REHAB PRESCREENING Rehab referral received and chart reviewed. This patient does have a rehab diagnosis. PT and OT evaluations pending as well as a repeat echo. Rehab will continue to follow for admission criteria. Thank you for this referral! Nena Oneil, MEDICAL INTERN Rehab PD
--- NOTE | 2020-11-07 19:23 | NUR ---
RECIEVED UP IN BED WITH EYES OPEN AND TV ON. ALERT AND ORIENTED X4. BEDFAST AT THIS TIME. SAID SHE'S UNABLE TO WALK. PUREWICK IN PLACE. C/O FOOD NOT BEING AND GOOD AND THAT SHE ONLY ATE THE YAMS. REQUESTING A SANDWICH BOX AND SODA. GAVE HER A SANDWICH BOX ABD DIET SOD WITH WATER. REFUSES TO DRINK WATER. STATED "I CAN'T STAND WATER". ASSISTED UP TO SIDE OF BED SO SHE COULD EAT. NO OTHER C/O VOICED.
[2020-11-08] VITALS: BP 147/83
[2020-11-08 04:00] VITALS: BP 106/46
[2020-11-08 07:17] LABS: BASOPHILS 0.1 % (0-2); EOSINOPHILS 0.1 % (0-7); HEMATOCRIT 31.8 % (36.0-48.0); HEMOGLOBIN 10.8 g/dL (12-16); LYMPHOCYTES 23.6 % (15-50); MCH 29.3 pg (26.0-34.0); MCHC 33.9 g/dL (31.0-37.0); MCV 86.2 fL (80.0-100.0); MEAN PLATELET VOLUME 8.4 fL (7.4-10.4); MONOCYTES 8.4 % (2-11); NEUTROPHILS 67.8 % (40-80); PLATELET COUNT 229 10x3/uL (130-400); RBC 3.69 10x6/uL (4.00-5.40); RDW 13.7 % (11.5-14.5)
[2020-11-08 07:18] LABS: WBC 9.4 10x3/uL (4.8-10.8)
[2020-11-08 07:36] LABS: ALBUMIN 2.2 g/dL (3.4-5.0); ANION GAP 10.9 mmol/L (8-16); BILIRUBIN - TOTAL 0.31 mg/dL (0.2-1.3); CALCIUM 8.2 mg/dL (8.5-10.1); CARBON DIOXIDE 28.3 mmol/L (21.0-32.0); CREATININE - SERUM 1.2 mg/dL (0.6-1.3); POTASSIUM - SERUM 4.2 mmol/L (3.5-5.1); PROTEIN - SERUM 5.2 g/dL (6.4-8.2)
[2020-11-08 08:00] VITALS: BP 134/74
[2020-11-08 12:00] VITALS: BP 144/72
--- NOTE | 2020-11-08 15:17 | NUR ---
OT NOTE: PT EXTREMELEY LEHTARGIC IN AM.. UNABLE TO KEEP EYES OPEN.. ZOE ROMO, OTR/L
[2020-11-08 15:58] VITALS: BP 131/62
[2020-11-08 19:00] VITALS: BP 133/63
--- NOTE | 2020-11-08 19:24 | NUR ---
RECIEVED UP IN BED WIWTH EYES OPEN NAD TV ON. STATED " WHEN CAN I GO HOME." EXPLAINED SHE WAS WANTING REHAB. STATED " I DON'T WANT IT HERE. I WANT TO GO HOME AND DO REHAB THERE. MY KIDS ARE THERE AND THEY CAN HELP ME. I HAVE A W/C, WALKER AND MOTORIZED W/C THERE."
[2020-11-09] VITALS: BP 132/59
[2020-11-09 06:52] LABS: BASOPHILS 0.2 % (0-2); EOSINOPHILS 2.2 % (0-7); HEMATOCRIT 31.9 % (36.0-48.0); HEMOGLOBIN 10.8 g/dL (12-16); LYMPHOCYTES 39.4 % (15-50); MCH 29.1 pg (26.0-34.0); MCHC 33.8 g/dL (31.0-37.0); MEAN PLATELET VOLUME 8.5 fL (7.4-10.4); MONOCYTES 10.4 % (2-11); NEUTROPHILS 47.8 % (40-80); PLATELET COUNT 230 10x3/uL (130-400); RBC 3.71 10x6/uL (4.00-5.40); RDW 13.4 % (11.5-14.5); WBC 7.2 10x3/uL (4.8-10.8)
[2020-11-09 06:56] LABS: ANION GAP 9.6 mmol/L (8-16); BILIRUBIN - TOTAL 0.35 mg/dL (0.2-1.3); CALCIUM 8.1 mg/dL (8.5-10.1); CARBON DIOXIDE 29.2 mmol/L (21.0-32.0); CREATININE - SERUM 1.2 mg/dL (0.6-1.3); POTASSIUM - SERUM 3.8 mmol/L (3.5-5.1); PROTEIN - SERUM 5.3 g/dL (6.4-8.2)
[2020-11-09 08:00] VITALS: BP 149/82
--- NOTE | 2020-11-09 09:20 | NUR ---
REHAB PRESCREENING This patient is a good candidate for acute rehab. We will accept her for admission if she is agreeable to come and when her physicians feel she is appropriate for discharge. I have begun her electronic screen. Thank you for this referral! Nena Oneil, STEAM HAMMER OPERATOR Rehab PD
[2020-11-09] MEDS ORDERED: COREG 3.1253.125 MG PO (10:45)
[2020-11-09] MEDS ORDERED: ENTRESTO 24 MG1 EACH PO (10:45)
[2020-11-09] MEDS ORDERED: COLCRYS0.6 MG PO (10:46)
[2020-11-09] MEDS ORDERED: NITROQUICK0.4 MG SL (10:46)
[2020-11-09] MEDS ORDERED: LIPITOR20 MG PO (12:40)
[2020-11-09] MEDS ORDERED: BAYER CHEWABLE81 MG PO (12:40)
== END 2020-11-09 14:51 | disposition home health service (06) | DRG 250 ==
LOC: D.ER 16:48 → D.ICU 19:43 → D.M2 19:43
PROVIDERS: Emergency Medicine; Family Medicine; ADMIT Internal Medicine Cardiovascular Disease; ATTEND Internal Medicine Cardiovascular Disease
PROC: B2111ZZ Fluoroscopy of Multiple Coronary Arteries using Low Osmolar Contrast (ICD-10-PCS; 2020-11-06)
PROC: B2151ZZ Fluoroscopy of Left Heart using Low Osmolar Contrast (ICD-10-PCS; 2020-11-06)
PROC: 02703ZZ Dilation of Coronary Artery, One Artery, Percutaneous Approach (ICD-10-PCS; principal; 2020-11-06 17:48)
PROC: 4A023N7 Measurement of Cardiac Sampling and Pressure, Left Heart, Percutaneous Approach (ICD-10-PCS; 2020-11-06 17:48)
DX: I97.190 Other postprocedural cardiac functional disturbances following cardiac surgery (principal); I21.A9 Other myocardial infarction type; T82.855A Stenosis of coronary artery stent, initial encounter; J98.11 Atelectasis; Z68.41 Body mass index [BMI] 40.0-44.9, adult; I31.9 Disease of pericardium, unspecified; Y83.9 Surgical procedure, unspecified as the cause of abnormal reaction of the patient, or of later complication, without mention of misadventure at the time of the procedure; I25.119 Atherosclerotic heart disease of native coronary artery with unspecified angina pectoris; E11.65 Type 2 diabetes mellitus with hyperglycemia; E11.40 Type 2 diabetes mellitus with diabetic neuropathy, unspecified; I10 Essential (primary) hypertension; J44.9 Chronic obstructive pulmonary disease, unspecified; K21.9 Gastro-esophageal reflux disease without esophagitis; E66.9 Obesity, unspecified; H26.9 Unspecified cataract; I25.5 Ischemic cardiomyopathy; Z78.0 Asymptomatic menopausal state; Z86.73 Personal history of transient ischemic attack (TIA), and cerebral infarction without residual deficits; Z72.0 Tobacco use

== ENCOUNTER 2020-11-10 07:44 | Emergency (ER) | payer MEDICARE, OTHER ==
[~2020-11-10] VITALS: Ht 165.1 cm; Wt 90.9 kg
[~2020-11-10 07:44] MED LIST changes: +COLCRYS0.6 MG PO; +COREG 3.1253.125 MG PO; +ENTRESTO 24 MG1 EACH PO; +NITROQUICK0.4 MG SL
[2020-11-10 07:49] VITALS: Ht 165.1 cm; Wt 90.9 kg
[2020-11-10 08:18] LABS: CALCIUM 8.3 mg/dL (8.5-10.1); CARBON DIOXIDE 28.2 mmol/L (21.0-32.0); CREATININE - SERUM 1.2 mg/dL (0.6-1.3); POTASSIUM - SERUM 4.2 mmol/L (3.5-5.1)
[2020-11-10 08:32] LABS: BASOPHILS 0.3 % (0-2); LYMPHOCYTES 28.3 % (15-50); MCH 28.8 pg (26.0-34.0); MCHC 33.3 g/dL (31.0-37.0); MCV 86.6 fL (80.0-100.0); MEAN PLATELET VOLUME 8.7 fL (7.4-10.4); MONOCYTES 9.1 % (2-11); NEUTROPHILS 59.3 % (40-80); RBC 4.16 10x6/uL (4.00-5.40); RDW 13.3 % (11.5-14.5)
[2020-11-10 08:39] LABS: ALBUMIN 2.4 g/dL (3.4-5.0); BILIRUBIN - TOTAL 0.58 mg/dL (0.2-1.3); MAGNESIUM - SERUM 1.8 mg/dL (1.8-2.4)
[2020-11-10 08:41] LABS: TROPONIN-I 21.438 ng/mL (0.000-0.060)
[2020-11-10 08:50] LABS: PLATELET COUNT 152 10x3/uL (130-400); WBC 9.5 10x3/uL (4.8-10.8)
[2020-11-10 09:45] VITALS: BP 160/52
== END 2020-11-10 10:20 | disposition home or self-care (01) ==
LOC: D.ER 07:44
PROVIDERS: Family Medicine
DX: I25.10 Atherosclerotic heart disease of native coronary artery without angina pectoris (principal); R07.89 Other chest pain; F41.9 Anxiety disorder, unspecified; E66.9 Obesity, unspecified; Z86.73 Personal history of transient ischemic attack (TIA), and cerebral infarction without residual deficits; E11.40 Type 2 diabetes mellitus with diabetic neuropathy, unspecified; I10 Essential (primary) hypertension; J44.9 Chronic obstructive pulmonary disease, unspecified; K21.9 Gastro-esophageal reflux disease without esophagitis; Z72.0 Tobacco use; Z79.4 Long term (current) use of insulin